=== PATIENT | male | born 1985 | race Caucasian/White ===

== ENCOUNTER 2016-06-08 12:55 | Emergency (ER) | payer OTHER ==
[~2016-06-08] VITALS: Ht 193 cm; Wt 73.3 kg
[~2016-06-08 12:55] MED LIST: ALBUAER19 INH; HYDR-5688 PO; ONDA4TAB10 SL
[2016-06-08 13:06] VITALS: TEMP 36.2; Ht 193 cm; Wt 73.3 kg
[2016-06-08] MEDS ORDERED: MoRPHine SULFATE 10 MG/ML CARP/VIAL IV PRN (13:30)
[2016-06-08] MEDS ORDERED: ONDANSETRON INJ 2 MG/ML 2 ML VIAL IV PRN (13:30)
--- NOTE | 2016-06-08 13:30 | EMERGENCY ROOM VISIT NOTE ---
History Report prepared by Omi: Rosita Verma Under the Supervision of: Dr. Cesar Estrada M.D. First contact with patient: 13:14 Chief Complaint: HEADACHE Stated Complaint: HEADACHE, BLACKED OUT History of Present Illness The patient is a 31 year old male who presents to the Emergency Room with complaints of an intermittent headache that began , but became persistent this past . He currently rates his discomfort as a 9/10 in severity. The patient states that on he hit his head pretty hard and notes an intermittent headache since then. He states that on he hit his head a few times off the ceiling, and states that his headache has been constant since then. The patient states that Friday afternoon he had a syncopal episode while going to the bathroom. He localizes the pain to the top of his head. The patient additionally associates blurry vision, muffled hearing , lightheaded and dizziness with ambulation, and photophobia. He states that he has had concussions in the past. The patient states that he smokes approximately a half a pack of cigarettes per day. He denies any ambulatory dysfunction or difficulty speaking. Source of History: patient Onset: , Position: head Symptom Intensity: 9/10 Timing: intermittent, other (persistent) Associated Symptoms: + nausea Note: Associated Symptoms: blurry vision, muffled hearing, lightheaded, dizziness, photophobia Review of Systems All systems have been listed, reviewed, and are negative other than those previously mentioned. Please see Additional Medical History Sheet. Past Medical & Surgical Medical Problems: (1) Asthma, Unspecified (2) Back pain (3) Back pain (4) Closed head injury (5) Concussion (6) Foreign body in eye (7) Foreign body in eye (8) Headache (9) Headache (10) Pain of right great toe (11) Pain, dental (12) Pain, dental (13) Pilonidal cyst without abscess (14) Postoperative pain (15) Sinusitis (16) Sprain of left hand (17) Vasovagal episode Family History Cancer Heart disease Hypertension Social History Smoking Status: Current Every Day Smoker Alcohol Use: none Drug Use: marijuana Marital Status: Housing Status: lives with family Occupation Status: employed Current/Historical Medications Scheduled Multivitamin (Multivitamin), 1 TAB PO DAILY Ondasetron Odt (Zofran Odt), 4 MG SL Q6H Scheduled PRN Albuterol Inhaler (Ventolin Inhaler), 2 PUFFS INH QID PRN for Shortness of Breath Ibuprofen Tab (Motrin), 600 MG PO Q6H PRN for Pain Allergies Coded Allergies: No Known Allergies (Unverified , 05/11/16) Physical Exam Vital Signs Date Time Temp Pulse Resp B/P Pulse Ox O2 Delivery O2 Flow Rate FiO2 06/08/16 14:43 69 14 128/74 97 Room Air 06/08/16 13:46 73 16 126/71 97 Room Air 06/08/16 13:06 36.2 95 18 113/82 97 Room Air Physical Exam GENERAL: Patient awake, alert, oriented x 3. Patient follows commands. Patient does not appear toxic. Patient is adequately hydrated and well- nourished. SKIN: No erythema, pallor, cyanosis or rash HEENT: Normal head, pupils equal, reactive to light and accommodation, slightly photophobic. Ears normal. Oral cavity and posterior pharynx appear normal. Neck: Without adenopathy, no neck vein distention. LUNGS: Clear to auscultation. No wheezes, no rales, no rhonchi. HEART: No murmurs. No gallops. No rubs ABDOMEN: Soft, nontender. EXTREMITIES: No signs of trauma or infection. NEUROLOGIC: Cranial nerves II-XII within normal limits. No gross motor sensory function deficits. Medical Decision & Procedures ER Provider Diagnostic Interpretation: CT results are interpretations by the radiologist and per my review. CT OF THE HEAD WITHOUT CONTRAST CLINICAL HISTORY: Headache. Recent head injury. COMPARISON STUDY: Head CT July 17, 2015. CT DOSE: 537.48 mGy.cm TECHNIQUE: Helical axial images of the head were obtained without IV contrast. Automated exposure control was utilized for the study. FINDINGS: No acute intracranial hemorrhage, midline shift or mass effect is present. Ventricular system is normal. The basilar cisterns are patent. There are no extra-axial collections. Arriola-white differentiation is maintained. There are no calvarial fractures. There is mild to moderate interval thickening of the ethmoid, sphenoid and maxillary sinuses. IMPRESSION: 1. No acute intracranial findings. 2. No calvarial fracture. 3. Mild to moderate paranasal sinus mucosal thickening. Electronically signed by: Deepak Zuñiga M.D. 06/08/2016 1:49 PM Dictated Date/Time: 06/08/2016 1:46 PM Laboratory Results 06/08/16 13:30 Red Blood Count 5.03, Mean Corpuscular Volume 87.5, Mean Corpuscular Hemoglobin 30.8, Mean Corpuscular Hemoglobin Concent 35.2, Mean Platelet Volume 10.1, Neutrophils (%) (Auto) 60.2, Lymphocytes (%) (Auto) 28.4, Monocytes (%) (Auto) 7.5, Eosinophils (%) (Auto) 3.2, Basophils (%) (Auto) 0.4, Neutrophils # (Auto) 4.71, Lymphocytes # (Auto) 2.22, Monocytes # (Auto) 0.59, Eosinophils # (Auto) 0.25, Basophils # (Auto) 0.03 06/08/16 13:30 Test 06/08/16 13:30 White Blood Count 7.82 K/uL (4.8-10.8) Red Blood Count 5.03 M/uL (4.7-6.1) Hemoglobin 15.5 g/dL (14.0-18.0) Hematocrit 44.0 % (42-52) Mean Corpuscular Volume 87.5 fL (80-100) Mean Corpuscular Hemoglobin 30.8 pg (25-34) Mean Corpuscular Hemoglobin Concent 35.2 g/dl (32-36) Platelet Count 240 K/uL (130-400) Mean Platelet Volume 10.1 fL (7.4-10.4) Neutrophils (%) (Auto) 60.2 % Lymphocytes (%) (Auto) 28.4 % Monocytes (%) (Auto) 7.5 % Eosinophils (%) (Auto) 3.2 % Basophils (%) (Auto) 0.4 % Neutrophils # (Auto) 4.71 K/uL (1.4-6.5) Lymphocytes # (Auto) 2.22 K/uL (1.2-3.4) Monocytes # (Auto) 0.59 K/uL (0.11-0.59) Eosinophils # (Auto) 0.25 K/uL (0-0.5) Basophils # (Auto) 0.03 K/uL (0-0.2) RDW Standard Deviation 40.4 fL (36.4-46.3) RDW Coefficient of Variation 12.5 % (11.5-14.5) Immature Granulocyte % (Auto) 0.3 % Immature Granulocyte # (Auto) 0.02 K/uL (0.00-0.02) Anion Gap 9.0 mmol/L (3-11) Est Creatinine Clear Calc Drug Dose 129.4 ml/min Estimated GFR () 133.6 Estimated GFR (Non- 115.3 BUN/Creatinine Ratio 15.4 (10-20) Calcium Level 9.0 mg/dl (8.5-10.1) Laboratory results as stated above per my review. Medications Administered Medications (Trade) Dose Ordered Sig/Will Route Start Time Stop Time Status Last Admin Dose Admin Morphine Sulfate (MoRPHine SULFATE INJ) 8 mg Q1H PRN IV 06/08/16 13:30 06/22/16 13:29 06/08/16 14:20 8 MG Ondansetron HCl (Zofran Inj) 4 mg PRN PRN IV 06/08/16 13:30 07/08/16 13:29 06/08/16 14:20 4 MG ED Course 1314: Past medical records reviewed. The patient was evaluated in room B12B. A complete history and physical examination was performed. 1330: Ordered Zofran Inj 4 mg IV, Morphine sulfate 8 mg IV. 1422: I reevaluated the patient and he is resting comfortably. I discussed the exam findings with him and I discussed the treatment plan. He verbalized complete understanding and agreement. He just received his pain medications now , once he feels better, he is okay to go home. Medical Decision Nurses notes reviewed. Medical history sheet reviewed. Differential diagnosis includes but is not limited to: concussion, closed head injury, traumatic brain injury, migraine, tension, or cluster headache, sinus headache. CT reveals some thickening of the sinuses but patient has no history of recent drainage or fever. There is no evidence of a bleed or significant swelling. The patient appears to have a mild concussion. He will be treated symptomatically with Motrin. He is to follow up with his family doctor within the next 7 days. Impression Primary Impression: Concussion Scribe Attestation The scribe's documentation has been prepared under my direction and personally reviewed by me in its entirety. I confirm that the note above accurately reflects all work, treatment, procedures, and medical decision making performed by me. Departure Information Dispostion Home / Self-Care Prescriptions Ibuprofen Tab (MOTRIN) 600 Mg Tab 600 MG PO Q6H Y for Pain, #30 TAB Prov: Cesar Estrada M.D. 06/08/16 Referrals Valentina Rodriguez PA-C (PCP) Forms HOME CARE DOCUMENTATION FORM, IMPORTANT VISIT INFORMATION Patient Instructions A Signature Page, My [facility] Additional Instructions 600 mg of ibuprofen every 6 hours until pain has resolved. Follow-up with your family physician within the next 7 days. Return here sooner if your pain is getting worse.
[2016-06-08 13:51] LABS: BASO % 0.4 %; BASO ABS # 0.03 K/uL (0-0.2); COMPLETE YES; EOS % 3.2 %; IG% 0.3 %; LYMPH % 28.4 %; LYMPH ABS # 2.22 K/uL (1.2-3.4); MEAN CELL VOLUME 87.5 fL (80-100); MEAN CORPUSCULAR HEMOGLOBIN 30.8 pg (25-34); MEAN CORPUSCULAR HGB CONC 35.2 g/dl (32-36); MEAN PLATELET VOLUME 10.1 fL (7.4-10.4); MONO % 7.5 %; NEUT % 60.2 %; PLATELET COUNT 240 K/uL (130-400); RED BLOOD COUNT 5.03 M/uL (4.7-6.1); WHITE BLOOD COUNT 7.82 K/uL (4.8-10.8)
--- NOTE | 2016-06-08 13:51 | DIAGNOSTIC IMAGING REPORT ---
CT OF THE HEAD WITHOUT CONTRAST CLINICAL HISTORY: Headache. Recent head injury. COMPARISON STUDY: Head CT July 17, 2015. CT DOSE: 537.48 mGy.cm TECHNIQUE: Helical axial images of the head were obtained without IV contrast. Automated exposure control was utilized for the study. FINDINGS: No acute intracranial hemorrhage, midline shift or mass effect is present. Ventricular system is normal. The basilar cisterns are patent. There are no extra-axial collections. Arriola-white differentiation is maintained. There are no calvarial fractures. There is mild to moderate interval thickening of the ethmoid, sphenoid and maxillary sinuses. IMPRESSION: 1. No acute intracranial findings. 2. No calvarial fracture. 3. Mild to moderate paranasal sinus mucosal thickening. Electronically signed by: Deepak Zuñiga M.D. 06/08/2016 1:49 PM Dictated Date/Time: 06/08/2016 1:46 PM
[2016-06-08 14:07] LABS: BUN/CREATININE RATIO 15.4 (10-20); CREATININE 0.85 mg/dl (0.60-1.40); POTASSIUM 4.1 mmol/L (3.5-5.1)
[2016-06-08] MEDS ORDERED: IBUP-1427 PO (14:29)
[2016-06-08 14:43] VITALS: BP 128/74; PULSE 69; O2SAT 97
[2016-07-10] MEDS ORDERED: MULT-506 PO (13:09)
[2016-07-10] MEDS ORDERED: VNTHFA/IN INH (18:25)
[2016-07-10] MEDS ORDERED: ACET-1256 PO (18:25)
[2016-07-10] MEDS ORDERED: CYCL10TA6 PO (18:26)
== END 2016-06-08 15:10 | disposition home or self-care (01) ==
LOC: C.EDB 12:57
DX: S06.0X0A Concussion without loss of consciousness, initial encounter (principal); W22.8XXA Striking against or struck by other objects, initial encounter; J45.909 Unspecified asthma, uncomplicated; F17.200 Nicotine dependence, unspecified, uncomplicated; Z87.820 Personal history of traumatic brain injury; Z86.19 Personal history of other infectious and parasitic diseases; Z80.9 Family history of malignant neoplasm, unspecified; Z82.49 Family history of ischemic heart disease and other diseases of the circulatory system

== ENCOUNTER 2016-07-02 16:29 | Emergency (ER) | payer OTHER ==
[~2016-07-02] VITALS: Ht 193 cm; Wt 77.2 kg
[~2016-07-02 16:29] MED LIST changes: -HYDR-5688 PO; +IBUP-1427 PO
[2016-07-02 16:33] VITALS: TEMP 36.5; Ht 193 cm; Wt 77.2 kg
[2016-07-02] MEDS ORDERED: SODIUM CHLORIDE 0.9% 1000ML 1,000 ML IV ONE (16:46)
[2016-07-02] MEDS ORDERED: SODIUM CHLORIDE 0.9% 1000ML 1,000 ML IV STA (16:46)
[2016-07-02] MEDS ORDERED: KETOROLAC TROMETHAMINE 30 MG/ML VIAL IV STA (16:46)
[2016-07-02 17:01] LABS: BASO % 0.6 %; BASO ABS # 0.05 K/uL (0-0.2); COMPLETE YES; EOS % 3.4 %; HEMATOCRIT 42.1 % (42-52); IG% 0.3 %; LYMPH % 32.5 %; LYMPH ABS # 2.79 K/uL (1.2-3.4); MEAN CORPUSCULAR HEMOGLOBIN 30.8 pg (25-34); MEAN CORPUSCULAR HGB CONC 34.2 g/dl (32-36); MONO % 5.9 %; NEUT % 57.3 %; PLATELET COUNT 275 K/uL (130-400); RED BLOOD COUNT 4.68 M/uL (4.7-6.1); WHITE BLOOD COUNT 8.59 K/uL (4.8-10.8)
[2016-07-02 17:32] LABS: ALT/SGPT 23 U/L (12-78); AST/SGOT 13 U/L (15-37); BLOOD UREA NITROGEN 12 mg/dl (7-18); BUN/CREATININE RATIO 12.8 (10-20); CALCIUM 8.6 mg/dl (8.5-10.1); CARBON DIOXIDE 25 mmol/L (21-32); CHLORIDE 107 mmol/L (98-107); CREATININE 0.96 mg/dl (0.60-1.40); GLUCOSE 111 mg/dl (70-99); POTASSIUM 3.8 mmol/L (3.5-5.1); SODIUM 142 mmol/L (136-145)
[2016-07-02 17:35] LABS: ALKALINE PHOSPHATASE 84 U/L (45-117)
[2016-07-02 17:35] LABS: URINE APPEARANCE CLEAR (CLEAR); URINE BILIRUBIN NEG (NEG); URINE COLOR YELLOW; URINE NITRITE NEG (NEG); URINE SPECIFIC GRAVITY 1.013 (1.000-1.030); UROBILINOGEN NEG (NEG)
[2016-07-02 17:37] LABS: MANUAL MICROSCOPIC REQUIRED? NO; REVIEW REQ? NO
--- NOTE | 2016-07-02 17:43 | DIAGNOSTIC IMAGING REPORT ---
CT SCAN OF THE ABDOMEN AND PELVIS WITHOUT IV CONTRAST CLINICAL HISTORY: Epigastric abdominal pain. COMPARISON STUDY: KUB dated 06/16/2007. TECHNIQUE: CT scan of the abdomen and pelvis is performed from the lung bases to the proximal femora. Images are reviewed in the axial, sagittal, and coronal planes. IV contrast was not administered for this examination as per the referring clinician. Note that the examination was performed in suboptimal fashion without oral and IV contrast. Automated dose control exposure was utilized. CT DOSE: 628.54 mGycm FINDINGS: Lung bases: The heart is normal in size and without pericardial effusion. The lung bases are clear. Liver: The unenhanced liver is normal in size, contour, and attenuation. There is no intrahepatic biliary ductal dilatation. Gallbladder: Contracted. Spleen: Normal in size and attenuation. Pancreas: Unremarkable. Adrenal glands: Unremarkable. Kidneys: The unenhanced kidneys are normal in size and without hydronephrosis. There are no renal calculi identified. There is no evidence of contour deforming renal mass lesion. Abdominal vasculature: The abdominal aorta is normal in course and caliber. Bowel: The small bowel and colon are normal in course and caliber. There is moderate colonic fecal retention. The appendix is well-visualized and normal. Peritoneum: There is no intraperitoneal free air or abdominal ascites. Lymphadenopathy: None. Pelvic viscera: The bladder, prostate, and seminal vesicles are normal as visualized. Skeletal structures: No lytic or blastic lesions are seen. IMPRESSION: 1. Suboptimal examination without oral and IV contrast. 2. There are no acute infectious or inflammatory findings in the abdomen or pelvis. 3. Moderate constipation. Electronically signed by: Keo Cherry M.D. 07/02/2016 5:42 PM Dictated Date/Time: 07/02/2016 5:38 PM
--- NOTE | 2016-07-02 17:46 | DIAGNOSTIC IMAGING REPORT ---
CT SCAN OF THE LUMBAR SPINE WITHOUT IV CONTRAST CLINICAL HISTORY: Low back pain. COMPARISON STUDY: CT scan of the abdomen and pelvis performed concurrently on 07/02/2016. MRI of lumbar spine dated 02/09/2014. TECHNIQUE: CT scan of the lumbar spine is performed from the lower thoracic spine to the sacrum. Images are reviewed in the axial, sagittal, and coronal planes. IV contrast was not administered for this examination. CT DOSE: Reported separately under the concurrently performed CT scan of the abdomen and pelvis. FINDINGS: The skeletal structures are well mineralized. There is no evidence of fracture or malalignment. Vertebral body height and alignment are maintained throughout the lumbar spine. The transverse and spinous processes are intact. There is no spondylolysis. No lytic or blastic lesions are seen. Small anterior osteophytes are noted at L4 and L5. There is no evidence of large disc herniation. Mild degenerative disc space narrowing is seen at L5-S1. The remaining disc spaces are preserved. The central canal is clear as visualized. The imaged sacrum and bony pelvis appear intact. The paraspinous soft tissues are within normal limits. IMPRESSION: Unremarkable CT scan of the lumbar spine. Electronically signed by: Keo Cherry M.D. 07/02/2016 5:44 PM Dictated Date/Time: 07/02/2016 5:42 PM
[2016-07-02] MEDS ORDERED: OXYC1TAB3 PO (18:02)
[2016-07-02 18:22] VITALS: BP 137/86; PULSE 79; O2SAT 99
--- NOTE | 2016-07-02 19:02 | EMERGENCY ROOM VISIT NOTE ---
History Report prepared by Omi: Monica Ortiz Under the Supervision of: Dr. Rodrigo Parsons M.D. First contact with patient: 16:36 Chief Complaint: ABDOMINAL PAIN Stated Complaint: ABD/ LOWER BACK PAIN History of Present Illness The patient is a 31 year old male who presents to the Emergency Room with complaints of persistent lower back pain starting about a week ago. He describes it to be a sharp pain. He also complains of upper abdominal pain. He has taken Vicodin without relief. He denies any activities that worsen or improve his pain. He also complains of chills, dark colored urine, and body aches. The patient denies any recent trauma or injuries, fevers, chest pain, shortness of breath, vomiting, burning with urination, numbness, weakness, or any other complaints. He has a history of bulging disc in his back but reports that his current pain is much more severe than normal. His was diagnosed with hepatitis A about a month ago. He denies any history of cholecystectomy. The patient denies any history of diabetes. He drinks alcohol occasionally. Source of History: patient Onset: about a week ago Position: back (lower) Quality: sharp Timing: other (persistent) Modifying Factors (Relieving): other (Vicodin without relief) Associated Symptoms: + abdominal pain, + chills, No SOB, No chest pain, No fevers, No numbness, No vomiting, No weakness Review of Systems See HPI for pertinent positives & negatives. A total of 10 systems reviewed and were otherwise negative. Past Medical & Surgical Medical Problems: (1) Asthma, Unspecified (2) Back pain (3) Back pain (4) Closed head injury (5) Concussion (6) Foreign body in eye (7) Foreign body in eye (8) Headache (9) Headache (10) Pain of right great toe (11) Pain, dental (12) Pain, dental (13) Pilonidal cyst without abscess (14) Postoperative pain (15) Sinusitis (16) Sprain of left hand (17) Vasovagal episode Old medical records were reviewed. Nurse's notes were reviewed and I agree with. Family History Cancer Heart disease Hypertension Social History Smoking Status: Current Every Day Smoker Alcohol Use: none Drug Use: marijuana Marital Status: Housing Status: lives with family Occupation Status: employed Current/Historical Medications Scheduled Acetaminophen (Tylenol), 1,000 MG PO PRN UD Multivitamin (Multivitamin), 1 TAB PO DAILY Scheduled PRN Albuterol Hfa (Ventolin Hfa), 2 PUFFS INH Q6H PRN for Shortness of Breath Cyclobenzaprine Hcl (Flexeril), 10 MG PO TID PRN for Muscle Spasms Oxycodone Immediate Rel Tab (Roxicodone Ir), 1-2 TAB PO Q4H PRN for Severe Pain Allergies Coded Allergies: No Known Allergies (Unverified , 05/11/16) Physical Exam Vital Signs Date Time Temp Pulse Resp B/P Pulse Ox O2 Delivery O2 Flow Rate FiO2 07/02/16 18:22 79 18 137/86 99 Room Air 07/02/16 16:33 36.5 90 20 122/79 99 Room Air Physical Exam General: Non-ill appearing, young male, in no acute distress. HEENT: Normal cephalic atraumatic. Pupils are equal round and reactive to light. Extraocular movements are intact. Oropharynx is pink with moist mucous membranes. No swelling of the mouth lips or tongue. Neck: Supple with a midline trachea. No meningeal signs or stiffness, no JVD or bruits. No Stridor. Chest: Clear to auscultation bilaterally. No wheezes or rhonchi. No increased work of breathing. Heart: regular rate and rhythm. Abdomen: Soft nontender, nondistended without rebound guarding or rigidity. Extremities: No cyanosis clubbing or edema. No calf tenderness or assymetry Spine/Back. Non tender to palpation. No CVA tenderness Skin: Good turgor without rashes. Neurologic exam: Cranial nerves two through 12 are intact. Motor and sensation are intact and symmetrical throughout. Medical Decision & Procedures ER Provider Diagnostic Interpretation: CT results as stated below per my review and radiologist interpretation: CT SCAN OF THE ABDOMEN AND PELVIS WITHOUT IV CONTRAST CLINICAL HISTORY: Epigastric abdominal pain. COMPARISON STUDY: KUB dated 06/16/2007. TECHNIQUE: CT scan of the abdomen and pelvis is performed from the lung bases to the proximal femora. Images are reviewed in the axial, sagittal, and coronal planes. IV contrast was not administered for this examination as per the referring clinician. Note that the examination was performed in suboptimal fashion without oral and IV contrast. Automated dose control exposure was utilized. CT DOSE: 628.54 mGycm FINDINGS: Lung bases: The heart is normal in size and without pericardial effusion. The lung bases are clear. Liver: The unenhanced liver is normal in size, contour, and attenuation. There is no intrahepatic biliary ductal dilatation. Gallbladder: Contracted. Spleen: Normal in size and attenuation. Pancreas: Unremarkable. Adrenal glands: Unremarkable. Kidneys: The unenhanced kidneys are normal in size and without hydronephrosis. There are no renal calculi identified. There is no evidence of contour deforming renal mass lesion. Abdominal vasculature: The abdominal aorta is normal in course and caliber. Bowel: The small bowel and colon are normal in course and caliber. There is moderate colonic fecal retention. The appendix is well-visualized and normal. Peritoneum: There is no intraperitoneal free air or abdominal ascites. Lymphadenopathy: None. Pelvic viscera: The bladder, prostate, and seminal vesicles are normal as visualized. Skeletal structures: No lytic or blastic lesions are seen. IMPRESSION: 1. Suboptimal examination without oral and IV contrast. 2. There are no acute infectious or inflammatory findings in the abdomen or pelvis. 3. Moderate constipation. Electronically signed by: Keo Cherry M.D. 07/02/2016 5:42 PM Dictated Date/Time: 07/02/2016 5:[address] SCAN OF THE LUMBAR SPINE WITHOUT IV CONTRAST CLINICAL HISTORY: Low back pain. COMPARISON STUDY: CT scan of the abdomen and pelvis performed concurrently on 07/02/2016. MRI of lumbar spine dated 02/09/2014. TECHNIQUE: CT scan of the lumbar spine is performed from the lower thoracic spine to the sacrum. Images are reviewed in the axial, sagittal, and coronal planes. IV contrast was not administered for this examination. CT DOSE: Reported separately under the concurrently performed CT scan of the abdomen and pelvis. FINDINGS: The skeletal structures are well mineralized. There is no evidence of fracture or malalignment. Vertebral body height and alignment are maintained throughout the lumbar spine. The transverse and spinous processes are intact. There is no spondylolysis. No lytic or blastic lesions are seen. Small anterior osteophytes are noted at L4 and L5. There is no evidence of large disc herniation. Mild degenerative disc space narrowing is seen at L5-S1. The remaining disc spaces are preserved. The central canal is clear as visualized. The imaged sacrum and bony pelvis appear intact. The paraspinous soft tissues are within normal limits. IMPRESSION: Unremarkable CT scan of the lumbar spine. Electronically signed by: Keo Cherry M.D. 07/02/2016 5:44 PM Dictated Date/Time: 07/02/2016 5:42 PM Laboratory Results 07/02/16 16:40 Red Blood Count 4.68, Mean Corpuscular Volume 90.0, Mean Corpuscular Hemoglobin 30.8, Mean Corpuscular Hemoglobin Concent 34.2, Mean Platelet Volume 10.0, Neutrophils (%) (Auto) 57.3, Lymphocytes (%) (Auto) 32.5, Monocytes (%) (Auto) 5.9, Eosinophils (%) (Auto) 3.4, Basophils (%) (Auto) 0.6, Neutrophils # (Auto) 4.92, Lymphocytes # (Auto) 2.79, Monocytes # (Auto) 0.51, Eosinophils # (Auto) 0.29, Basophils # (Auto) 0.05 07/02/16 16:40 Test 07/02/16 16:40 07/02/16 17:10 White Blood Count 8.59 K/uL (4.8-10.8) Red Blood Count 4.68 M/uL (4.7-6.1) Hemoglobin 14.4 g/dL (14.0-18.0) Hematocrit 42.1 % (42-52) Mean Corpuscular Volume 90.0 fL (80-100) Mean Corpuscular Hemoglobin 30.8 pg (25-34) Mean Corpuscular Hemoglobin Concent 34.2 g/dl (32-36) Platelet Count 275 K/uL (130-400) Mean Platelet Volume 10.0 fL (7.4-10.4) Neutrophils (%) (Auto) 57.3 % Lymphocytes (%) (Auto) 32.5 % Monocytes (%) (Auto) 5.9 % Eosinophils (%) (Auto) 3.4 % Basophils (%) (Auto) 0.6 % Neutrophils # (Auto) 4.92 K/uL (1.4-6.5) Lymphocytes # (Auto) 2.79 K/uL (1.2-3.4) Monocytes # (Auto) 0.51 K/uL (0.11-0.59) Eosinophils # (Auto) 0.29 K/uL (0-0.5) Basophils # (Auto) 0.05 K/uL (0-0.2) RDW Standard Deviation 42.1 fL (36.4-46.3) RDW Coefficient of Variation 12.8 % (11.5-14.5) Immature Granulocyte % (Auto) 0.3 % Immature Granulocyte # (Auto) 0.03 K/uL (0.00-0.02) Anion Gap 10.0 mmol/L (3-11) Est Creatinine Clear Calc Drug Dose 120.6 ml/min Estimated GFR () 120.7 Estimated GFR (Non- 104.2 BUN/Creatinine Ratio 12.8 (10-20) Calcium Level 8.6 mg/dl (8.5-10.1) Total Bilirubin 0.2 mg/dl (0.2-1) Direct Bilirubin < 0.1 mg/dl (0-0.2) Aspartate Amino Transf (AST/SGOT) 13 U/L (15-37) Alanine Aminotransferase (ALT/SGPT) 23 U/L (12-78) Alkaline Phosphatase 84 U/L (45-117) Total Protein 7.3 gm/dl (6.4-8.2) Albumin 3.9 gm/dl (3.4-5.0) Lipase 204 U/L (73-393) Urine Color YELLOW Urine Appearance CLEAR (CLEAR) Urine pH 7.0 (4.5-7.5) Urine Specific [place] 1.013 (1.000-1.030) Urine Protein NEG (NEG) Urine Glucose (UA) NEG (NEG) Urine Ketones NEG (NEG) Urine Occult Blood NEG (NEG) Urine Nitrite NEG (NEG) Urine Bilirubin NEG (NEG) Urine Urobilinogen NEG (NEG) Urine Leukocyte Esterase NEG (NEG) Laboratory studies as stated above per my review. Medications Administered Medications (Trade) Dose Ordered Sig/Will Route Start Time Stop Time Status Last Admin Dose Admin Sodium Chloride 1,000 ml @ 999 mls/hr Q1H1M STAT IV 07/02/16 16:46 07/02/16 17:46 DC 07/02/16 16:46 999 MLS/HR Sodium Chloride (Nss 1000ml) 1,000 ml @ 200 mls/hr Q5H ONCE IV 07/02/16 16:46 07/02/16 18:47 DC 07/02/16 16:46 200 MLS/HR Ketorolac Tromethamine (Toradol Inj) 30 mg NOW STAT IV 07/02/16 16:46 07/02/16 16:50 DC 07/02/16 16:46 30 MG ED Course 1636: Past medical records reviewed. The patient was evaluated in room B07, and a complete history and physical examination were performed. 164: Toradol Inj 30 mg IV, Sodium Chloride 1000 ml @ 200 mls/hr IV, Sodium Chloride 1000 ml @ 999 mls/hr IV 1810: Upon reevaluation, the patient is resting comfortably. I discussed the results and treatment plan with him. He verbalized agreement of the treatment plan. The patient was discharged home. Medical Decision Differential diagnosis includes but is not limited to lumbar disc disease, kidney stone, hepatitis, pancreatitis, infection, electrolyte or metabolic abnormality. This patient comes in as described above. he has low back pain. He has chronic low back problems but it feels worse he also says of epigastric pain. He looks well on exam and has minimal tenderness. There is no fever or chills here. He has stable vital signs. He has nothing to suggest cauda equina syndrome. He has no urinary symptoms. Urinalysis does not suggest a UTI. He has no white count or fever to suggest infection. He has normal liver functions and nothing to suggest hepatitis. He has nothing to suggest pancreatitis. CAT scan of his abdomen and lumbar spine was unremarkable. This may be more musculoskeletal. He did receive IV hydration as well with an IV normal saline bolus and hourly rate of IV normal saline while he was here he also received Toradol 30 mg IV. He feels up to go home. I will give a prescription for OxyIR 5 mg that he can use one or 2 pills every 4-6 hours as needed. he was warned that this could make him drowsy and do not take before drinking, driving, working. Do not take was any other narcotics or sedating medications. Follow-up with his doctor 1-2 days recheck. Return to the ER if: increasing pain, fever or chills, worsening of symptoms, any new problems or concerns. He was happy with the plan and discharged to home. Impression Primary Impression: Low back pain Additional Impression: Epigastric abdominal pain Scribe Attestation The scribe's documentation has been prepared under my direction and personally reviewed by me in its entirety. I confirm that the note above accurately reflects all work, treatment, procedures, and medical decision making performed by me. Departure Information Dispostion Home / Self-Care Prescriptions Oxycodone Immediate Rel Tab (ROXICODONE IR) 5 Mg Tab 1-2 TAB PO Q4H Y for Severe Pain, #12 TAB Prov: Rodrigo Parsons M.D. 07/02/16 Referrals Valentina Rodriguez PA-C (PCP) Forms Call Back Authorization, HOME CARE DOCUMENTATION FORM, IMPORTANT VISIT INFORMATION Patient Instructions My [facility] Additional Instructions Rest Plenty of fluids. Return if: Increasing pain, worsening of symptoms, fever or chills, any new problems or concerns For pain, may use OxyIR 5 mg, one or 2 pills every 4-6 hours as needed OxyIR may make you drowsy and do not take before drinking, driving, working Do not take OxyIR with any other narcotic medications or any other medications that can make you sleepy Follow-up with your doctor for recheck this week. Problem Qualifiers
[2016-07-10] MEDS ORDERED: MULT-506 PO (13:09)
[2016-07-10] MEDS ORDERED: ACET-1256 PO (18:25)
[2016-07-10] MEDS ORDERED: VNTHFA/IN INH (18:25)
[2016-07-10] MEDS ORDERED: CYCL10TA6 PO (18:26)
== END 2016-07-02 18:23 | disposition home or self-care (01) ==
LOC: C.EDB 16:30
DX: M54.5 Low back pain (principal); R10.13 Epigastric pain; F17.210 Nicotine dependence, cigarettes, uncomplicated; J45.909 Unspecified asthma, uncomplicated; K59.00 Constipation, unspecified; R33.9 Retention of urine, unspecified

== ENCOUNTER 2016-07-10 21:35 | Emergency (ER) | payer OTHER ==
[~2016-07-10] VITALS: Ht 193 cm; Wt 77.0 kg
[~2016-07-10 21:35] MED LIST changes: +ACET-1256 PO; -ALBUAER19 INH; +CYCL10TA6 PO; -IBUP-1427 PO; +MULT-506 PO; -ONDA4TAB10 SL; +OXYC1TAB3 PO; +VNTHFA/IN INH
[2016-07-10 21:38] VITALS: TEMP 36.6; Ht 193 cm; Wt 77.0 kg
--- NOTE | 2016-07-10 22:12 | DIAGNOSTIC IMAGING REPORT ---
CT FACIAL BONES-MXILLOFAC WITHOUT CT DOSE: 674.82 mGy.cm CLINICAL HISTORY: FACIAL PAIN STATUS POST TRAUMA COMPARISON STUDY: No previous studies for comparison. TECHNIQUE: Helical images were acquired in the transverse plane. The study was reviewed and analyzed on the independent 3-D workstation. The pterygoid plates appear intact. The zygomatic arches appear intact. The globes appear intact. There is no evidence of orbital emphysema. The orbital hairston and floor appear intact. The mandibular condyles appear intact. There is mucosal thickening within the sphenoid axillary ethmoid and frontal sinuses. IMPRESSION: 1. No facial fractures identified 2. Pansinus disease Electronically signed by: Guanakito Lerma M.D. 07/10/2016 10:11 PM Dictated Date/Time: 07/10/2016 10:09 PM
--- NOTE | 2016-07-10 22:28 | EMERGENCY ROOM VISIT NOTE ---
ED Visit Note First contact with patient: 21:41 CHIEF COMPLAINT: Left eye injury HISTORY OF PRESENT ILLNESS: This 31-year-old male patient presented to the emergency department ambulatory complaining of an injury to the left eye. The patient states that he was tearing up a wood floor when he was hit in the left eye with a piece of wood. He saw his loan clerk, who performed a complete eye exam and diagnosed him with a corneal abrasion. He states that a lens was placed on his eye and he has a follow-up tomorrow morning. He states that he was sent here to evaluate for a possible facial bone fracture, as he has pain surrounding the eye. He rates his discomfort a 9/10. There was no loss of consciousness. His vision is not decreased overall. REVIEW OF SYSTEMS: A review of systems was performed with positives and pertinent negatives listed in the history of present illness. All other systems were reviewed and are negative. ALLERGIES: No known drug allergies MEDICATIONS: Ventolin inhaler, Flexeril, multivitamin PMH: Asthma SOCIAL HISTORY: The patient lives locally with family. He is a smoker. PHYSICAL EXAM: Vital Signs: Reviewed Nurse's notes, vital signs stable. GENERAL : This is a 31-year-old male, in no acute distress, well-developed, well- nourished. NEURO: The patient is alert, oriented to person place and time, and coherent. Normal mini mental status exam. Negative Romberg and pronator drift. Cerebellar function intact. HEAD: Normocephalic. EYES: Left pupil is dilated, bilateral pupils are reactive to light and accommodation. EOMs are full and optic discs and fundi are normal. There is no swelling or discoloration of the tissue surrounding the eyes. There is tenderness of the infraorbital region. EARS: External auditory canals clear without blood. NOSE : Patent without tenderness. No septal hematoma. NECK: Supple. There is no cervical spine tenderness. RADIOGRAPHIC FINDINGS: CT FACIAL BONES-MXILLOFAC WITHOUT CT DOSE: 674.82 mGy.cm CLINICAL HISTORY: FACIAL PAIN STATUS POST TRAUMA COMPARISON STUDY: No previous studies for comparison. TECHNIQUE: Helical images were acquired in the transverse plane. The study was reviewed and analyzed on the independent 3-D workstation. The pterygoid plates appear intact. The zygomatic arches appear intact. The globes appear intact. There is no evidence of orbital emphysema. The orbital hairston and floor appear intact. The mandibular condyles appear intact. There is mucosal thickening within the sphenoid axillary ethmoid and frontal sinuses. IMPRESSION: 1. No facial fractures identified 2. Pansinus disease ED COURSE: I examined the patient. His left pupil is dilated secondary to his ophthalmologic exam. CT of the facial bones was performed and read by radiology with no acute facial bone fractures. The patient was informed of all findings. His corneal abrasion was are fully evaluated by ophthalmology. He will continue to follow-up with them as needed. He has Vicodin at home to take for pain. He verbalized understanding. The patient was discharged home in good condition ambulatory. DIAGNOSIS: Head injury Problem List Medical Problems: (1) Asthma, Unspecified Status: Chronic (2) Back pain Status: Resolved (3) Back pain Status: Resolved (4) Closed head injury Status: Resolved (5) Concussion Status: Resolved (6) Foreign body in eye Status: Resolved (7) Foreign body in eye Status: Resolved (8) Headache Status: Resolved (9) Headache Status: Resolved (10) Pain of right great toe Status: Resolved (11) Pain, dental Status: Resolved (12) Pain, dental Status: Resolved (13) Pilonidal cyst without abscess Status: Resolved (14) Postoperative pain Status: Resolved (15) Sinusitis Status: Resolved (16) Sprain of left hand Status: Resolved (17) Vasovagal episode Status: Resolved Current/Historical Medications Scheduled Multivitamin (Multivitamin), 1 TAB PO DAILY Scheduled PRN Acetaminophen (Tylenol), 1,000 MG PO Q6H PRN for Pain or Fever Albuterol Hfa (Ventolin Hfa), 2 PUFFS INH Q6H PRN for Shortness of Breath Cyclobenzaprine Hcl (Flexeril), 10 MG PO TID PRN for Muscle Spasm Allergies Coded Allergies: No Known Allergies (Unverified , 05/11/16) Vital Signs Date Time Temp Pulse Resp B/P Pulse Ox O2 Delivery O2 Flow Rate FiO2 07/10/16 22:31 84 18 145/87 95 07/10/16 21:38 36.6 102 17 122/88 97 Room Air Departure Information Impression Primary Impression: Closed head injury Additional Impression: Corneal abrasion Dispostion Home / Self-Care Condition GOOD Referrals Valentina Rodriguez PA-C (PCP) Patient Instructions My [facility] Additional Instructions For pain control, you can use the following [id number] medicines (if >12 yo): - Regular strength (325mg/tab) Tylenol (acetaminophen) 2 tabs every 4-6 hours as needed. Do not exceed 12 tablets in a 24 hour period. Avoid taking more than 4 grams (4000 mg) of Tylenol per day. This includes any other sources of acetaminophen you may take on a regular basis. - Regular strength (200 mg/tab) Advil (ibuprofen) 1-2 tabs every 4-6 hours as needed. Do not exceed a dose of 3200 mg per day. Continue to follow-up with your loan clerk as scheduled. Problem Qualifiers Primary Impression: Closed head injury Encounter type: initial encounter Qualified Codes: S09.90XA - Unspecified injury of head, initial encounter Additional Impression: Corneal abrasion Encounter type: initial encounter Laterality: left Qualified Codes: S05.02XA - Injury of conjunctiva and corneal abrasion without foreign body, left eye, initial encounter
[2016-07-10 22:31] VITALS: BP 145/87; PULSE 84; O2SAT 95
== END 2016-07-10 22:32 | disposition home or self-care (01) ==
LOC: C.EDB 21:36 → C.EDD 22:32
DX: S05.02XA Injury of conjunctiva and corneal abrasion without foreign body, left eye, initial encounter (principal); W22.8XXA Striking against or struck by other objects, initial encounter; J45.909 Unspecified asthma, uncomplicated; F17.210 Nicotine dependence, cigarettes, uncomplicated

== ENCOUNTER 2016-08-05 19:14 | Emergency (ER) | payer OTHER ==
[~2016-08-05] VITALS: Ht 185.4 cm; Wt 78.7 kg
[~2016-08-05 19:14] MED LIST changes: -OXYC1TAB3 PO
[2016-08-05 19:15] VITALS: BP 124/70; PULSE 98; TEMP 36.6; O2SAT 98; Ht 185.4 cm; Wt 78.7 kg
[2016-08-05] MEDS ORDERED: VNTHFA/IN INH (19:36)
[2016-08-05] MEDS ORDERED: OXYC1TAB3 PO (19:37)
--- NOTE | 2016-08-05 19:50 | EMERGENCY ROOM VISIT NOTE ---
ED Visit Note First contact with patient: 19:23 CHIEF COMPLAINT: Elbow pain HISTORY OF PRESENT ILLNESS: This 31-year-old male patient presents to the emergency department ambulatory complaining of pain in the right elbow. The patient reports that he had surgery on his right elbow to repairing tendon 3 weeks ago. He followed up there last week and have the splint removed. He states that he has been performing range of motion exercises. The patient states that 3 days ago, he tripped on a toy and fell. He states that he attempted to catch himself. He has had pain in the right elbow since then. He did contact his orthopedic surgeon in the told him that if his pain was too severe, he should go to a local emergency department. The patient rates their pain as sharp and and 9/10. The patient has taken no medication for relief of the pain. The patient does not have any numbness or tingling. The patient denies any other injuries. REVIEW OF SYSTEMS: A 6 system review of systems was completed with positives and pertinent negatives listed in the HPI. ALLERGIES: No known drug allergies MEDICATIONS: Multiple vitamin, Ventolin inhaler PMH: Asthma, right elbow surgery SOCIAL HISTORY: The patient lives locally with family. PHYSICAL EXAM: Vital Signs: Reviewed Nurse's notes, vital signs stable. GENERAL : This is a 31-year-old male, in no acute distress, well-developed, well- nourished. SKIN: The skin was without rashes, erythema, edema, warmth, or bruising. Capillary reflex less than 3 seconds. MUSCULOSKELETAL: There is a well-healing surgical wound to the right elbow. No erythema, swelling or drainage to suggestive infection. There is diffuse tenderness to palpation over the elbow. Full range of motion of the elbow. Strength 5/5. There is no tenderness of the shoulder, wrist, or hand. The patient is able to give a thumbs up, make an OK sign, and a #3 with their fingers. Radial pulse 2+. NEURO: Patient was alert and oriented to person place and time. Normal sensation to light and sharp touch. RADIOGRAPHIC FINDINGS: RIGHT ELBOW 3 VIEWS CLINICAL HISTORY: Fall with right elbow pain. FINDINGS: 3 views of the right elbow are compared to study dated 01/31/2016. The skeletal structures are well mineralized. No fracture is seen. The joint spaces of the elbow are well-maintained. No joint effusion is identified. Dorsal soft tissue swelling is noted. IMPRESSION: Soft tissue tissue swelling with no radiographic evidence of acute fracture. EMERGENCY DEPARTMENT COURSE: I examined the patient. There is no evidence of infection. An x-ray of the right elbow was reviewed myself and read by radiology and shows no acute findings. The patient will wear his arm sling. Conservative measures were discussed. The patient was instructed to follow closely with his orthopedic surgeon for further evaluation. Neurovascular status was rechecked and intact. The patient was discharged home in stable condition. DIAGNOSIS: Elbow pain Problem List Medical Problems: (1) Asthma, Unspecified Status: Chronic (2) Back pain Status: Resolved (3) Back pain Status: Resolved (4) Closed head injury Status: Resolved (5) Concussion Status: Resolved (6) Foreign body in eye Status: Resolved (7) Foreign body in eye Status: Resolved (8) Headache Status: Resolved (9) Headache Status: Resolved (10) Pain of right great toe Status: Resolved (11) Pain, dental Status: Resolved (12) Pain, dental Status: Resolved (13) Pilonidal cyst without abscess Status: Resolved (14) Postoperative pain Status: Resolved (15) Sinusitis Status: Resolved (16) Sprain of left hand Status: Resolved (17) Vasovagal episode Status: Resolved Current/Historical Medications Scheduled Multivitamin (Multivitamin), 1 TAB PO DAILY Scheduled PRN Acetaminophen (Tylenol), 1,000 MG PO Q6H PRN for Pain or Fever Albuterol Hfa (Ventolin Hfa), 2 PUFFS INH Q6H PRN for SOB/Wheezing Oxycodone Ir (Roxicodone Ir), 1-2 TAB PO Q4H PRN for Severe Pain Allergies Coded Allergies: No Known Allergies (Unverified , 05/11/16) Vital Signs Date Time Temp Pulse Resp B/P Pulse Ox O2 Delivery O2 Flow Rate FiO2 08/05/16 19:15 36.6 98 18 124/70 98 Room Air Departure Information Impression Primary Impression: Right elbow pain Dispostion Home / Self-Care Condition GOOD Referrals Valentina Rodriguez PA-C (PCP) Patient Instructions My [facility] Additional Instructions You have been treated in the Emergency Department for Elbow Pain. For pain control, you can use the following [id number] medicines (if >12 yo): - Regular strength (325mg/tab) Tylenol (acetaminophen) 2 tabs every 4-6 hours as needed. Do not exceed 12 tablets in a 24 hour period. Avoid taking more than 4 grams (4000 mg) of Tylenol per day. This includes any other sources of acetaminophen you may take on a regular basis. - Regular strength (200 mg/tab) Advil (ibuprofen) 1-2 tabs every 4-6 hours as needed. Do not exceed a dose of 3200 mg per day. If this is a recent injury (<24 hrs), ice can be applied to the area of pain for the first 3 days to help decrease pain and inflammation. You should call your orthopedic surgeon as soon as possible to establish a follow-up visit from today's Emergency Department visit. Keep the sling in place until evaluated by Orthopedics. Return to the Emergency Department if your current symptoms worsen despite treatment course outlined above, or if you develop any of the following symptoms : intractable pain despite aforementioned treatment course or new onset of numbness or tingling of the arm.
--- NOTE | 2016-08-05 19:54 | DIAGNOSTIC IMAGING REPORT ---
RIGHT ELBOW 3 VIEWS CLINICAL HISTORY: Fall with right elbow pain. FINDINGS: 3 views of the right elbow are compared to study dated 01/31/2016. The skeletal structures are well mineralized. No fracture is seen. The joint spaces of the elbow are well-maintained. No joint effusion is identified. Dorsal soft tissue swelling is noted. IMPRESSION: Soft tissue tissue swelling with no radiographic evidence of acute fracture. Electronically signed by: Keo Cherry M.D. 08/05/2016 7:53 PM Dictated Date/Time: 08/05/2016 7:51 PM
== END 2016-08-05 20:32 | disposition home or self-care (01) ==
LOC: C.EDB 19:15 → C.EDD 20:32
DX: M25.521 Pain in right elbow (principal); J45.909 Unspecified asthma, uncomplicated

== ENCOUNTER 2016-10-06 18:50 | Emergency (ER) | payer OTHER ==
[~2016-10-06] VITALS: Ht 193 cm; Wt 72.3 kg
[~2016-10-06 18:50] MED LIST changes: -CYCL10TA6 PO; +OXYC1TAB3 PO
[2016-10-06 18:53] VITALS: TEMP 36.8; Ht 193 cm; Wt 72.3 kg
[2016-10-06] MEDS ORDERED: SODIUM CHLORIDE 0.9% 1000ML 2,000 ML IV STA (19:03)
[2016-10-06] MEDS ORDERED: SODIUM CHLORIDE 0.9% 1000ML 1,000 ML IV STA (19:03)
[2016-10-06] MEDS ORDERED: PROMETHAZINE HCL INJ 25 MG in SODIUM CHLORIDE 0.9% 50ML 50 ML IV STA (19:03)
[2016-10-06] MEDS ORDERED: FENTANYL CITRATE INJ 50 MCG/1 ML 2 ML VIAL IV STA (19:03)
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
[2016-10-06 19:27] LABS: BASO % 0.2 %; BASO ABS # 0.02 K/uL (0-0.2); COMPLETE YES; EOS % 1.3 %; HEMATOCRIT 39.5 % (42-52); IG% 0.1 %; LYMPH % 28.7 %; LYMPH ABS # 3.08 K/uL (1.2-3.4); MEAN CORPUSCULAR HEMOGLOBIN 30.9 pg (25-34); MEAN CORPUSCULAR HGB CONC 34.7 g/dl (32-36); MEAN PLATELET VOLUME 9.6 fL (7.4-10.4); MONO % 6.1 %; NEUT % 63.6 %; PLATELET COUNT 252 K/uL (130-400); RED BLOOD COUNT 4.44 M/uL (4.7-6.1); WHITE BLOOD COUNT 10.72 K/uL (4.8-10.8)
--- NOTE | 2016-10-06 19:38 | DIAGNOSTIC IMAGING REPORT ---
CHEST ONE VIEW PORTABLE CLINICAL HISTORY: Fever, chills, cough. COMPARISON STUDY: No previous studies for comparison. FINDINGS: The cardiac and mediastinal contours are normal. There is no evidence of focal pulmonary consolidation. There is no evidence of failure. No pleural effusions are visualized.[ IMPRESSION: No active disease in the chest. Electronically signed by: Guanakito Lerma M.D. 10/06/2016 7:36 PM Dictated Date/Time: 10/06/2016 7:36 PM
[2016-10-06 19:43] LABS: BLOOD UREA NITROGEN 10 mg/dl (7-18); BUN/CREATININE RATIO 11.7 (10-20); CALCIUM 8.8 mg/dl (8.5-10.1); CARBON DIOXIDE 30 mmol/L (21-32); CHLORIDE 107 mmol/L (98-107); CREATININE 0.84 mg/dl (0.60-1.40); GLUCOSE 129 mg/dl (70-99); POTASSIUM 3.5 mmol/L (3.5-5.1); SODIUM 144 mmol/L (136-145)
[2016-10-06 19:46] LABS: C-REACTIVE PROTEIN < 0.29 mg/dl (0-0.29)
[2016-10-06 19:48] LABS: URINE APPEARANCE CLEAR (CLEAR); URINE BILIRUBIN NEG (NEG); URINE COLOR YELLOW; URINE EPITHELIAL CELL AUTO 20-30 /lpf (0-5); URINE NITRITE NEG (NEG); URINE PH 6.5 (4.5-7.5); URINE SPECIFIC GRAVITY 1.016 (1.000-1.030); UROBILINOGEN NEG (NEG); ZZUR CULT IF INDIC CLEAN CATCH NO
[2016-10-06 19:49] LABS: MANUAL MICROSCOPIC REQUIRED? NO; REVIEW REQ? NO
--- NOTE | 2016-10-06 19:52 | DIAGNOSTIC IMAGING REPORT ---
CT HEAD WITHOUT CONTRAST (CT) CLINICAL HISTORY: Head trauma. Headache. Vomiting. COMPARISON STUDY: 06/08/2016 TECHNIQUE: Axial CT of the brain is performed from the vertex to the skull base. IV contrast was not administered for this examination. CT DOSE: 537.48 mGy.cm FINDINGS: No intra or extra-axial mass lesions are visualized. There is no CT evidence of acute cortical infarction. There is no evidence of midline shift. There is no acute hemorrhage. No calvarial fractures are visualized. There is no evidence of pathologic ventricular dilatation. There is mucosal thickening within the sphenoid and ethmoid sinuses. IMPRESSION: No acute intracranial findings Electronically signed by: Guanakito Lerma M.D. 10/06/2016 7:51 PM Dictated Date/Time: 10/06/2016 7:49 PM
[2016-10-06] MEDS ORDERED: LORAZEPAM 2 MG/ML 1 ML VIAL ONE (20:09)
[2016-10-06 20:20] LABS: LYME DISEASE AB IGG NEG (NEG); LYME DISEASE AB IGM NEG (NEG)
[2016-10-06] MEDS ORDERED: PHENERGAN 25MG HOMEPACK PO ONE (22:00)
[2016-10-06 22:39] VITALS: BP 118/80; PULSE 74; O2SAT 99
== END 2016-10-06 22:30 | disposition home or self-care (01) ==
LOC: C.EDB 18:51 → C.EDA 22:30
DX: R11.10 Vomiting, unspecified (principal); E86.0 Dehydration; R41.82 Altered mental status, unspecified; J45.909 Unspecified asthma, uncomplicated; F17.200 Nicotine dependence, unspecified, uncomplicated; Z87.820 Personal history of traumatic brain injury; Z87.828 Personal history of other (healed) physical injury and trauma; Z80.9 Family history of malignant neoplasm, unspecified; Z82.49 Family history of ischemic heart disease and other diseases of the circulatory system

== ENCOUNTER 2016-10-07 22:47 | Emergency (ER) | payer OTHER ==
[~2016-10-07] VITALS: Ht 193 cm; Wt 74.7 kg
[2016-10-07 22:48] VITALS: TEMP 36.7; Ht 193 cm; Wt 74.7 kg
[2016-10-07] MEDS ORDERED: KETOROLAC TROMETHAMINE 30 MG/ML VIAL IV STA (23:21)
[2016-10-07] MEDS ORDERED: DiphenhydrAMINE HCL 50 MG/ML VIAL IV STA (23:21)
[2016-10-07] MEDS ORDERED: PROCHLORPERAZINE 5 MG/ML 2 ML VIAL IV STA (23:21)
[2016-10-07] MEDS ORDERED: SODIUM CHLORIDE 0.9% 1000ML 1,000 ML IV ONE (23:30)
[2016-10-07 23:37] LABS: BASO % 0.6 %; BASO ABS # 0.07 K/uL (0-0.2); COMPLETE YES; EOS % 2.3 %; HEMATOCRIT 37.5 % (42-52); IG% 0.2 %; LYMPH % 25.9 %; LYMPH ABS # 3.21 K/uL (1.2-3.4); MEAN CELL VOLUME 89.3 fL (80-100); MEAN CORPUSCULAR HEMOGLOBIN 30.7 pg (25-34); MEAN CORPUSCULAR HGB CONC 34.4 g/dl (32-36); MEAN PLATELET VOLUME 9.8 fL (7.4-10.4); MONO % 6.4 %; NEUT % 64.6 %; PLATELET COUNT 237 K/uL (130-400); WHITE BLOOD COUNT 12.38 K/uL (4.8-10.8)
[2016-10-07 23:50] LABS: URINE APPEARANCE CLEAR (CLEAR); URINE BILIRUBIN NEG (NEG); URINE COLOR YELLOW; URINE EPITHELIAL CELL AUTO 0-5 /lpf (0-5); URINE NITRITE NEG (NEG); URINE PH 6.5 (4.5-7.5); URINE SPECIFIC GRAVITY 1.007 (1.000-1.030); UROBILINOGEN NEG (NEG); ZZUR CULT IF INDIC CLEAN CATCH NO
[2016-10-07 23:54] LABS: MANUAL MICROSCOPIC REQUIRED? NO; REVIEW REQ? NO
[2016-10-07 23:59] LABS: ALT/SGPT 25 U/L (12-78); AST/SGOT 13 U/L (15-37); BLOOD UREA NITROGEN 10 mg/dl (7-18); BUN/CREATININE RATIO 12.2 (10-20); CALCIUM 8.3 mg/dl (8.5-10.1); CARBON DIOXIDE 30 mmol/L (21-32); CHLORIDE 108 mmol/L (98-107); CREATININE 0.84 mg/dl (0.60-1.40); GLUCOSE 121 mg/dl (70-99); POTASSIUM 3.4 mmol/L (3.5-5.1); SODIUM 144 mmol/L (136-145)
[2016-10-08 00:02] LABS: ALB/GLOB RATIO 1.1 (0.9-2); ALKALINE PHOSPHATASE 78 U/L (45-117); C-REACTIVE PROTEIN < 0.29 mg/dl (0-0.29)
[2016-10-08 00:15] LABS: BENZODIAZEPINE, URINE NEG (NEG); COCAINE,URINE NEG (NEG); PHENCYCLIDINE, URINE NEG (NEG)
[2016-10-08] MEDS ORDERED: PHENERGAN 25MG HOMEPACK PO ONE (00:30)
[2016-10-08 00:43] VITALS: BP 135/79; PULSE 73; O2SAT 97
--- NOTE | 2016-10-08 03:41 | EMERGENCY ROOM VISIT NOTE ---
History First contact with patient: 22:50 Chief Complaint: BACK PAIN Stated Complaint: VOMITING,LOWER BACK PAIN History of Present Illness The patient is a 31 year old male who presents to the Emergency Room with complaints of persistent nausea and vomiting for the past few days. The patient was seen and evaluated at this facility yesterday with this complaint where he was given Zofran and fluids. The patient reported headache symptoms yesterday, and there was some concern for the possibility of meningitis versus other cause of his symptoms. A lumbar puncture was attempted 2 yesterday, however the patient was not overly cooperative with this, and no spinal fluid was obtained. The patient refused further lumbar puncture, and did feel well for discharge home yesterday. The patient states that today he had persistent vomiting, prompting him to return back to the ER today. He does have some mild pain in the area of the lumbar puncture. He continues with a mild headache and rates his overall discomfort an 8/10. He has not had fever or chills. No chest pain or shortness of breath. Review of Systems More than 10 systems were reviewed and otherwise negative with the exception of history of present illness. Past Medical/Surgical History Medical Problems: (1) Asthma, Unspecified (2) Back pain (3) Back pain (4) Closed head injury (5) Concussion (6) Foreign body in eye (7) Foreign body in eye (8) Headache (9) Headache (10) Pain of right great toe (11) Pain, dental (12) Pain, dental (13) Pilonidal cyst without abscess (14) Postoperative pain (15) Sinusitis (16) Sprain of left hand (17) Vasovagal episode Family History Cancer Heart disease Hypertension Social History Smoking Status: Current Every Day Smoker Alcohol Use: none Drug Use: marijuana Marital Status: Housing Status: lives with family Occupation Status: employed Current/Historical Medications No Active Prescriptions or Reported Meds Allergies Coded Allergies: No Known Allergies (Unverified , 10/07/16) Physical Exam Vital Signs Date Time Temp Pulse Resp B/P Pulse Ox O2 Delivery O2 Flow Rate FiO2 10/08/16 00:43 73 20 135/79 97 10/07/16 22:48 36.7 94 16 118/73 96 Room Air Pain Rating (0-10): 6.0 Physical Exam VITALS: Vitals are noted on the nurse's note and reviewed by myself. Vital signs stable. GENERAL: Well-developed, well-nourished, white male, who is in no acute distress and resting comfortably. Patient is cooperative with the examination. HEAD: Normocephalic atraumatic. NECK: Supple without nuchal rigidity. No lymphadenopathy. No thyromegaly. Cervical spine is nontender. No meningismus. HEART: Regular rate and rhythm without murmurs gallops or rubs. LUNGS: Clear to auscultation bilaterally without wheezes, rales or rhonchi. No retractions or accessory muscle use. MUSCULOSKELETAL: No muscle atrophy, erythema, or edema noted. Full range of motion without joint tenderness in all extremities. No distinct tenderness throughout the lumbar spine. There is mild SI joint tenderness. Band aid from previous LP was removed no evidence of erythema or edema. The LP site is non- tender on palpation and there is no fluctuance or drainage. Neurovascular status is intact distally. No saddle paresthesias. NEURO: Patient was alert and oriented to person place and time. CN II through XII grossly intact. Deep tendon reflexes 2+ throughout. Medical Decision & Procedures Laboratory Results 10/07/16 23:25 Red Blood Count 4.20, Mean Corpuscular Volume 89.3, Mean Corpuscular Hemoglobin 30.7, Mean Corpuscular Hemoglobin Concent 34.4, Mean Platelet Volume 9.8, Neutrophils (%) (Auto) 64.6, Lymphocytes (%) (Auto) 25.9, Monocytes (%) (Auto) 6.4, Eosinophils (%) (Auto) 2.3, Basophils (%) (Auto) 0.6, Neutrophils # (Auto) 8.00, Lymphocytes # (Auto) 3.21, Monocytes # (Auto) 0.79, Eosinophils # (Auto) 0.29, Basophils # (Auto) 0.07 10/07/16 23:25 Test 10/07/16 23:25 10/07/16 23:38 White Blood Count 12.38 K/uL (4.8-10.8) Red Blood Count 4.20 M/uL (4.7-6.1) Hemoglobin 12.9 g/dL (14.0-18.0) Hematocrit 37.5 % (42-52) Mean Corpuscular Volume 89.3 fL (80-100) Mean Corpuscular Hemoglobin 30.7 pg (25-34) Mean Corpuscular Hemoglobin Concent 34.4 g/dl (32-36) Platelet Count 237 K/uL (130-400) Mean Platelet Volume 9.8 fL (7.4-10.4) Neutrophils (%) (Auto) 64.6 % Lymphocytes (%) (Auto) 25.9 % Monocytes (%) (Auto) 6.4 % Eosinophils (%) (Auto) 2.3 % Basophils (%) (Auto) 0.6 % Neutrophils # (Auto) 8.00 K/uL (1.4-6.5) Lymphocytes # (Auto) 3.21 K/uL (1.2-3.4) Monocytes # (Auto) 0.79 K/uL (0.11-0.59) Eosinophils # (Auto) 0.29 K/uL (0-0.5) Basophils # (Auto) 0.07 K/uL (0-0.2) RDW Standard Deviation 40.9 fL (36.4-46.3) RDW Coefficient of Variation 12.6 % (11.5-14.5) Immature Granulocyte % (Auto) 0.2 % Immature Granulocyte # (Auto) 0.02 K/uL (0.00-0.02) Erythrocyte Sedimentation Rate 4 mm/hr (0-14) Anion Gap 6.0 mmol/L (3-11) Est Creatinine Clear Calc Drug Dose 133.4 ml/min Estimated GFR () 134.3 Estimated GFR (Non- 115.9 BUN/Creatinine Ratio 12.2 (10-20) Calcium Level 8.3 mg/dl (8.5-10.1) Total Bilirubin 0.3 mg/dl (0.2-1) Aspartate Amino Transf (AST/SGOT) 13 U/L (15-37) Alanine Aminotransferase (ALT/SGPT) 25 U/L (12-78) Alkaline Phosphatase 78 U/L (45-117) C-Reactive Protein < 0.29 mg/dl (0-0.29) Total Protein 6.4 gm/dl (6.4-8.2) Albumin 3.4 gm/dl (3.4-5.0) Globulin 3.0 gm/dl (2.5-4.0) Albumin/Globulin Ratio 1.1 (0.9-2) Lipase 271 U/L (73-393) Urine Color YELLOW Urine Appearance CLEAR (CLEAR) Urine pH 6.5 (4.5-7.5) Urine Specific Langston 1.007 (1.000-1.030) Urine Protein NEG (NEG) Urine Glucose (UA) NEG (NEG) Urine Ketones NEG (NEG) Urine Occult Blood NEG (NEG) Urine Nitrite NEG (NEG) Urine Bilirubin NEG (NEG) Urine Urobilinogen NEG (NEG) Urine Leukocyte Esterase TRACE (NEG) Urine WBC (Auto) 0 /hpf (0-5) Urine RBC (Auto) 0-4 /hpf (0-4) Urine Hyaline Casts (Auto) 0 /lpf (0-5) Urine Epithelial Cells (Auto) 0-5 /lpf (0-5) Urine Bacteria (Auto) NEG (NEG) Urine Opiates Screen POS (NEG) Urine Methadone, Qualitative NEG (NEG) Urine Barbiturates NEG (NEG) Urine Phencyclidine (PCP) Level NEG (NEG) Ur Amphetamine/Methamphetamine NEG (NEG) MDMA (Ecstasy) Screen NEG (NEG) Urine Benzodiazepines Screen NEG (NEG) Urine Cocaine Metabolite NEG (NEG) Urine Marijuana (THC) NEG (NEG) Medications Administered Medications (Trade) Dose Ordered Sig/Will Route Start Time Stop Time Status Last Admin Dose Admin Sodium Chloride (Nss 1000ml) 1,000 ml @ 999 mls/hr Q1H1M ONCE IV 10/07/16 23:30 10/08/16 00:30 DC 10/07/16 23:34 999 MLS/HR Diphenhydramine HCl (Benadryl Inj) 25 mg NOW STAT IV 10/07/16 23:21 10/07/16 23:24 DC 10/07/16 23:35 25 MG Prochlorperazine Edisylate (Compazine Inj) 10 mg NOW STAT IV 10/07/16 23:21 10/07/16 23:24 DC 10/07/16 23:34 10 MG Ketorolac Tromethamine (Toradol Inj) 30 mg NOW STAT IV 10/07/16 23:21 10/07/16 23:24 DC 10/07/16 23:35 30 MG Promethazine HCl (Phenergan 25MG Home Pack) 1 homepack UD ONCE PO 10/08/16 00:30 10/08/16 00:31 DC 10/08/16 00:39 1 [facility] ED Course Physical exam and history were performed. Nursing notes and EMR were reviewed. Patient appears to have persisting nausea and vomiting for the past several days. The patient does not appear toxic on examination. He is without evidence of meningitis or encephalitis. Because of the recent LP I did elect to draw labs. The patient was hydrated and medicated as above. The patient's blood work is as above and was reviewed. His white blood cell count is just slightly elevated at 12,000. This is just slightly elevated from yesterday. He does not have a gross anemia or electrolyte imbalance. His ESR and CRP are both negative. Urine is without evidence of infection. His remaining labs are fairly nondiagnostic. The case was discussed with my attending physician, Dr. Rodríguez. The patient is felt to have a viral gastroenteritis causing his nausea and vomiting. His headache symptoms seemed to improve with hydration and pain medication. The LP site is nontender and I do not appreciate signs of abscess. I do not suspect a spinal headache as the patient did not have removal of any spinal fluid with the attempt yesterday. I suspect his discomfort is simply from the attempt. The patient will need close follow-up by his PCP. I recommended that he follow- up in the next 12-36 hours for a recheck. I discussed the possibility of developing infection, and the patient is to monitor for increasing fever or worsening back pain. He will be given a short course of Phenergan and invited back to the ER with any new, worsening, or concerning symptoms. The chart was completed utilizing [employer] Speech Voice Recognition Software. Grammatical errors, random word insertions, pronoun errors, and incomplete sentences are an occasional consequence of this system due to software limitations, ambient noise, and hardware issues. Any formal questions or concerns about the content, text, or information contained within the body of this dictation should be directly addressed to the provider for clarification. . Medical Decision Differential diagnosis: Etiologies such as gastroenteritis, food borne illness, infections, appendicitis , diverticulitis, inflammatory bowel disease, obstruction, GI bleed, biliary pathology, as well as others were entertained. Impression Primary Impression: Nausea and vomiting Departure Information Dispostion Home / Self-Care Condition GOOD Prescriptions No Active Prescriptions or Reported Meds Forms HOME CARE DOCUMENTATION FORM, IMPORTANT VISIT INFORMATION Patient Instructions My [facility] Additional Instructions You were seen and evaluated today on an emergency basis only. This is not a substitute for, or an effort to provide, complete comprehensive medical care. It is not possible to recognize and treat all injuries or illnesses in a single emergency department visit. For this reason it is recommended that you followup with your primary care physician in the next 12-36 hours for recheck of your condition. You may use Phenergan 25 mg (homepack) every 6 hours as needed for nausea Drink clear fluids and remain well hydrated. You are welcome to return to the emergency department anytime with new, worsening, or concerning symptoms.
[2016-10-10 09:06] LABS: COD UR NEGATIVE NG/ML (CUTOFF=50); HYDROCOD UR NEGATIVE NG/ML (CUTOFF=50); HYDROMOR UR NEGATIVE NG/ML (CUTOFF=50); MORPHINE UR 923 NG/ML (CUTOFF=50); NORHYDROCODONE CONF UR NEGATIVE NG/ML (CUTOFF=50); OXYMORPH UR NEGATIVE NG/ML (CUTOFF=50)
== END 2016-10-08 00:44 | disposition home or self-care (01) ==
LOC: C.EDB 22:47 → C.EDA 10-08 00:44
DX: R11.2 Nausea with vomiting, unspecified (principal); J45.909 Unspecified asthma, uncomplicated; Z80.9 Family history of malignant neoplasm, unspecified; Z82.49 Family history of ischemic heart disease and other diseases of the circulatory system; F17.210 Nicotine dependence, cigarettes, uncomplicated

== ENCOUNTER 2016-10-16 14:35 | Emergency (ER) | payer OTHER ==
[~2016-10-16] VITALS: Ht 193 cm; Wt 73.1 kg
[2016-10-16 14:50] VITALS: TEMP 36.7; Ht 193 cm; Wt 73.1 kg
[2016-10-16 15:29] VITALS: BP 112/72; PULSE 68; O2SAT 98
--- NOTE | 2016-10-16 15:29 | EMERGENCY ROOM VISIT NOTE ---
ED Visit Note First contact with patient: 14:58 CHIEF COMPLAINT: Head injury 3 hours ago HISTORY OF PRESENT ILLNESS: Patient is an otherwise healthy 31-year-old white male who presents to the emergency department for evaluation after he sustained a head injury while trimming a tree about 3 hours ago. He should reports that he was up in a tree, taking down a limb. The limb got caught up in the limb got caught up on another branch, so he climbed down out of the tree and was going to pull the branch down with a rope. When he got down on the ground however a cast of wind blew the limb out of the tree, and he was unable to get out of the way. He was wearing a hardhat which he states the limb knocked off, then struck him on the top of the head. He reports that it was roughly 3 inches in diameter. He states that he was initially dazed and dizzy, but did not lose consciousness. He denies noticing any bleeding from the area. He states that he continued working on the tree, then was taken home by his friend. While at home, he noted a progressively worsening throbbing 9/10 headache, with associated blurry vision. He had Vicodin left over from his recent right elbow surgery which he took. He denies any associated nausea or vomiting. He has some minor discomfort in his neck which he states is chronic for him. He denies any numbness, tingling or weakness in the extremities. He denies any difficulty with balance, speech or coordination. He has been able to eat and drink without difficulty. Patient has a history of multiple closed head injuries/concussions. Patient was also seen and evaluated in emergency department about 10 days ago for a nausea and vomiting illness that she states is unrelated to his present injury. REVIEW OF SYSTEMS: Review of systems as per HPI. All other systems reviewed were negative. 10 systems reviewed. PMH: Electronic medical records are reviewed and summarized as above/below. See Problem List. Patient has a history of head injuries and concussions. SOCIAL HISTORY: Patient lives at home with his and children. Positive tobacco use, denies alcohol use. PHYSICAL EXAM: Vital Signs: Reviewed Nurse's notes. CONSTITUTIONAL: Patient is a well-appearing 31-year-old white male who is awake and alert and laying on the gurney in no acute distress. He is talking on his cell phone. HEENT: Right-sided parietal hematoma, with small abrasion noted. No depressed skull fractures appreciated. Pupils equal, round, reactive to light and accommodation. EOMs intact without nystagmus. Sclera are anicteric. Tympanic membranes intact, with normal landmarks. External canals are clear. No hemotympanum or Jordan sign. Oral and nasopharynx are clear. No CSF rhinorrhea. Mucous membranes are moist. NECK: Supple, nontender, no lymphadenopathy. Full range of motion. HEART: Regular rate and rhythm, with normal S1 and S2, no murmur or gallop or rub is heard. LUNGS: Breath sounds equal and clear to auscultation without wheezes, rales, or rhonchi heard. SKIN: No lesions or rash, normal skin turgor. EXTREMITIES: No cyanosis, edema, joint tenderness or swelling. No deformity. NEUROLOGICAL: Alert and oriented x4. Cranial nerves 2 through 12, sensation and strength grossly intact. Gait is normal. Patient is able to toe, heel and tandem walk without difficulty. Negative Romberg, and pronator drift. Finger to nose, finger to finger and rapid alternating movements are intact. Immediate , recent and remote memories are intact. Concentration is normal. ED course: The patient was seen and evaluated as above. His old records are reviewed. He has had a total of 5 head CTs between 2013 and 2017, his last was just 10 days ago when he was evaluated for headache, nausea and vomiting. Treatment options were discussed with the patient. He has a benign neurologic exam at this time. He was wearing head protection, and given his benign exam and the mechanism of injury, I did not feel that he required a head CT at this time. I did discuss the risks, benefits and alternatives to neuro imaging with a CT scan with the patient at length, and he was in agreement. Head injury instructions were outlined with him at length. He was educated on the worrisome signs or symptoms for which he should return to the emergency department. Differential diagnoses entertained included head contusion, skull fracture, acute intracranial bleed, concussion, cervical spine injury, among others. Patient was reviewed in the [facility] Prescription Drug Monitoring Program. He has received 23 narcotic prescriptions in the last 12 months, his last was in July of this year. Problem List Medical Problems: (1) Altered mental status Status: Resolved (2) Asthma, Unspecified Status: Chronic (3) Back pain Status: Resolved (4) Back pain Status: Resolved (5) Closed head injury Status: Resolved (6) Concussion Status: Resolved (7) Corneal abrasion Status: Resolved (8) Dehydration Status: Resolved (9) Dehydration Status: Resolved (10) Diarrhea Status: Resolved (11) Epigastric abdominal pain Status: Resolved (12) Foreign body in eye Status: Resolved (13) Foreign body in eye Status: Resolved (14) Hand contusion Status: Resolved (15) Hand laceration Status: Resolved (16) Headache Status: Resolved (17) Headache Status: Resolved (18) Low back pain Status: Resolved (19) Nausea and vomiting Status: Resolved (20) Nausea and vomiting Status: Resolved (21) Pain of right great toe Status: Resolved (22) Pain, dental Status: Resolved (23) Pain, dental Status: Resolved (24) Periapical abscess Status: Resolved (25) Pilonidal cyst without abscess Status: Resolved (26) Postoperative pain Status: Resolved (27) Right elbow pain Status: Resolved (28) Right elbow pain Status: Resolved (29) Sinusitis Status: Resolved (30) Sprain of left hand Status: Resolved (31) Vasovagal episode Status: Resolved (32) Vomiting Status: Resolved (33) Vomiting Status: Resolved Surgical Problems: (1) H/O elbow surgery Status: Resolved Current/Historical Medications No Active Prescriptions or Reported Meds Allergies Coded Allergies: No Known Allergies (Unverified , 10/07/16) Vital Signs Date Time Temp Pulse Resp B/P Pulse Ox O2 Delivery O2 Flow Rate FiO2 10/16/16 15:29 68 18 112/72 98 Room Air 10/16/16 14:50 36.7 73 18 185/66 98 Room Air Departure Information Impression Primary Impression: Closed head injury Additional Impression: Scalp contusion Prescriptions No Active Prescriptions or Reported Meds Referrals Valentina Rodriguez PA-C (PCP) Patient Instructions [facility] Additional Instructions CONCUSSION DISCHARGE INSTRUCTIONS: What is a concussion? A concussion is a disturbance in the function of the brain caused by a direct or indirect force to the head. It results in a variety of symptoms like: headache, balance problems, nausea, vomiting, vision problems, hearing problems/ringing, drowsiness, irritability, and/or difficulty concentrating or remembering. A concussion may, or may not involve memory problems or loss of consciousness. Concussion instructions: Stop and stay away from ALL physical activity until you are symptom free from: Headaches Balance problems Feeling "dinged" Poor concentration Drowsy Fatigued Rest and avoid strenuous activities for the next few days. Get 8-10 hours of sleep per night. Limit activities that involve significant concentration and attention during this time to speed your recovery. This includes studying, attending school, playing video games, and heavy reading. Your brain needs to rest. Eat right and eat often. Now is the time to feed your brain. Well balanced diets that avoid high sugar foods, sodas, caffeine, etc. are better for your brain. NO ALCOHOL OR DRUGS! Avoid stimulants like caffeine, red bull, mountain dew, "energy" drinks, etc. Tylenol(acetaminophen) may be used for headaches. Use 1000mg every six hours as needed. Avoid using more than 3000mg in a 24 hour period. Avoid anti-inflammatories such as aspirin, ibuprofen, Alleve, naprosyn, Motrin, or Advil as these can interfere with blood clotting and lead to bleeding within the brain after a traumatic injury. Stepwise return to sports for athletes: You may progress to the next step after 24 hours if you are symptom free. If you experience symptoms, you must return to the previous stage and try again after another 24 hours of rest and being symptom free. Best case scenario is full contact game play in 96 hours from the time of injury. Remember repeat concussions are worse than the first. Time invested in recovery will allow for better performance and less downtime in the future. If you have any questions see your hydraulic strainer operator or make an appointment to see one of the team physicians. 1) No activity, complete rest. Once all symptoms have resolved, report to the team physician or hydraulic strainer operator to be cleared to progress to step 2. 2) Start light aerobic exercise, such as walking or stationary cycling, no resistance training permitted. 3) Sport specific exercises. Add light resistance slowly. Go slow to allow your body to readapt. 4) Non-contact full speed practice. 5) Full contact practice and/or game play. FOLLOW UP INSTRUCTIONS: You should have a follow up with your family doctor in 3-5 days regarding your injury. POST CONCUSSIVE SYNDROME: Occasionally patients can experience a postconcussive syndrome which includes prolonged headaches and memory difficulties. This may occur over the next several days, weeks or rarely, even months. It is important to have a primary care physician follow-up in order to help if the situation develops. Problems could arise over the next 24 to 48 hours. You should not be left alone and MUST go to the hospital immediately if you: -Have a headache that suddenly gets worse. -Are very drowsy or cannot be woken up from sleep. -Can't recognize people or places. -Have repeated vomiting. -Behave unusually, seemed confused, or start acting irritable. -Have a seizure (arms and legs start jerking uncontrollably). -Have weak or numb arms or legs. -Are unsteady on your feet -Experience slurred speech or difficulty speaking. Problem Qualifiers
== END 2016-10-16 15:38 | disposition home or self-care (01) ==
LOC: C.EDB 14:37 → C.EDD 15:38
DX: S09.90XA Unspecified injury of head, initial encounter (principal); S00.03XA Contusion of scalp, initial encounter; W20.8XXA Other cause of strike by thrown, projected or falling object, initial encounter; Y92.89 Other specified places as the place of occurrence of the external cause; Y99.0 Civilian activity done for income or pay; J45.909 Unspecified asthma, uncomplicated; Z87.820 Personal history of traumatic brain injury; Z87.828 Personal history of other (healed) physical injury and trauma

== ENCOUNTER 2016-11-24 22:52 | Emergency (ER) | payer OTHER ==
[~2016-11-24] VITALS: Ht 193 cm; Wt 73.7 kg
[2016-11-24 22:59] VITALS: TEMP 36.4; Ht 193 cm; Wt 73.7 kg
[2016-11-24] MEDS ORDERED: LIDO/EPINEPHRINE/SOD BICARB 20 ML VIAL INFIL ONE (23:29)
[2016-11-24] MEDS ORDERED: HYDROCODONE/ACETAMOPHEN 5/325MG TAB PO ONE (23:30)
[2016-11-24] MEDS ORDERED: XYLOCAINE 1%/SOD BICARB 20 ML VIAL INFIL ONE (23:30)
[2016-11-25] MEDS ORDERED: CEPH500C2 PO (00:12)
[2016-11-25] MEDS ORDERED: HYDR-5688 PO (00:12)
[2016-11-25] MEDS ORDERED: NORCO 5/325MG HOME PACK PO ONE (00:15)
[2016-11-25] MEDS ORDERED: CEPHALEXIN 500MG HOME PACK 1 EA BTL PO ONE (00:15)
[2016-11-25 00:22] VITALS: BP 121/68; PULSE 78; O2SAT 98
--- NOTE | 2016-11-25 06:59 | DIAGNOSTIC IMAGING REPORT ---
LEFT HAND MIN 3 VIEWS ROUTINE CLINICAL HISTORY: L hand pain; transmission fell on hand COMPARISON: Left hand radiographs March 09, 2016. FINDINGS: Alignment of the left hand is anatomic. No acute fracture is identified. Carpal bones are intact. IMPRESSION: No acute fracture or dislocation of the left hand. Electronically signed by: Deepak Zuñiga M.D. 11/25/2016 6:58 AM Dictated Date/Time: 11/25/2016 6:55 AM
--- NOTE | 2016-11-26 00:26 | EMERGENCY ROOM VISIT NOTE ---
ED Visit Note First contact with patient: 23:06 Chief Complaint: I had 1000 pound transmission fall on my left hand. History of Present Illness: Mr. Baer is a 31-year-old white male who ambulates into the ED complaining of left hand pain and laceration. Patient reports he was working on 1000 pound transmission when it fell onto his left hand approximately 30 minutes ago. He reports since that time he has been having severe pain in the left hand and went transmission was lifted office and he noted a laceration to the middle finger. Currently he complains of pain throughout the middle and ring finger including the MCP, PIP and DIP joints. He describes the pain as sharp and throbbing. He rates his discomfort 9/10. His pain is nonradiating. His pain worsens with all movements of the middle and ring finger, palpation and palpation of the palm over the third and fourth metacarpals. He has not identified any alleviating factors related to the pain. Has not taken any medications for pain prior to arrival at the hospital. Review of Systems: As noted above in history of present illness. 8 body systems were reviewed and found to be negative as noted above. Past Medical History: Unspecified right arm surgery. Current Medications: Patient denies. Allergies to Medications: Patient denies. Social History: Patient is currently employed; he lives with his and children and feels safe in his home environment; he admits to tobacco use and denies alcohol use. Tetanus Immunization Status: Patient reports up-to-date; 2010. Physical Examination: Vital Signs: Date Time Temp Pulse Resp B/P (MAP) Pulse Ox O2 Delivery O2 Flow Rate FiO2 11/25/16 00:22 78 16 121/68 98 11/24/16 23:43 74 16 113/54 98 Room Air 11/24/16 22:59 36.4 97 18 121/79 98 Room Air GENERAL: 31-year-old male in moderate distress due to pain, nontoxic-appearing, afebrile and hemodynamically stable. NEUROLOGICAL: Awake, alert and oriented to person, place and time. Answering questions appropriately and following commands. Normal gait. SKIN: Warm, dry and pink. Right Hand: 1.4 cm full-thickness laceration over the ulnar aspect of the right middle finger at the PIP level. Minimal bleeding. RIGHT HAND: No gross bony deformity. Laceration as noted above under SKIN. Tenderness throughout the middle aspect of the hand including the second, third and fourth metacarpal, the third and fourth MCP joint, the third and fourth proximal and middle phalanges and the third and fourth PIP joints. I did not appreciate any bony deformity or crepitus. Because of pain he refused to move his MCP and PIP joints. The hand was dirty but capillary refill was observed. He was able to distinguish light sensations but does report there were numbness and tingling in the fingers. ED Course: Patient is assessed as noted above. Patient's medication list was reviewed. Patient was given one Brooten 5/325 mg tablet by mouth for pain and a digital block to the middle finger was performed with 2.8 mL of buffered 1% lidocaine. Right Hand X-Rays: Were read by myself and the radiologist showing no acute fractures, dislocations or foreign bodies. Wound Repair: Complexity: Basic Verbal consent was obtained after the risks and benefits were explained. The skin was prepped with betadine and a sterile field set. The wound was explored and a few pieces of small particulate matter were removed. It is Patient's middle finger was scrubbed with a surgical brush to remove dirt and oil. Copious irrigation was performed using sterile saline. With direct pressure the bleeding subsided. Debridement was not performed. The wound edges were approximated using 5-0 Ethilon with 2 simple interrupted sutures. Hemostasis and excellent approximation was achieved. Antibacterial ointment and a sterile dressing applied. No complications and the patient tolerated the procedure well. Patient's middle finger was placed in a metal finger splint. Patient and were educated about tonight's findings and instructed on his treatment plan; they verbalizes understanding and agreement with this plan. Clinical Impression: Laceration of the right middle finger. Crushing injury to the right hand. Disposition: Patient discharged home in stable condition; prior to departure he was reassessed and subjectively reported he was feeling better and rated his discomfort 6/10. Plan: Comfort measures, wound care, and signs of infection were discussed with the patient and his . Patient did receive a home pack and a prescription for Brooten; he was given appropriate narcotic precautions and his name was checked on the state database in no red flags were noted. Patient was also given a home pack and a prescription for cephalexin 500 mg 4 times a day for 7 days for prophylaxis. Patient was encouraged to follow-up with his PCP or return to the ED for any signs of infection and/or suture removal in 10-12 days.
--- NOTE | 2016-11-27 09:45 | EDITING REQUIRED CODING QUERY ---
CODING QUERY To promote full compliance with coding requirements relating to patient care, provider participation is requested in all cases of medical records coder uncertainty. Please assist us with the question(s) below: Coding Question(s): Please clarify laterality. Beginning of ED report lists injury was to patients' left hand. Other areas of report state right hand. Physician's Response(s): Injury was to the LEFT HAND and fingers Thank you Annie Morales Principal Diagnosis: "_that condition established after study, to be chiefly responsible for occasioning the admission of the patient to the hospital for care." Co-Existing Principal Diagnosis: "_when two or more diagnoses equally meet the criteria for principal diagnosis as determined by the circumstances of admission, diagnostic work up, and/or therapy provided, and the Alphabetic Index, Tabular List, or another coding guideline does not provide sequencing direction, any one of the diagnoses may be sequenced first." "When the physician has documented what appears to be a current diagnosis in the body of the record, but has not included the diagnosis in the final diagnostic statement, the physician should be asked whether the diagnosis should be added." ([facility] 2 QTR90. p3-4)
== END 2016-11-25 00:20 | disposition home or self-care (01) ==
LOC: C.EDB 22:53 → C.EDC 11-25 00:20
DX: S61.213A Laceration without foreign body of left middle finger without damage to nail, initial encounter (principal); S67.22XA Crushing injury of left hand, initial encounter; W24.1XXA Contact with transmission devices, not elsewhere classified, initial encounter; F17.200 Nicotine dependence, unspecified, uncomplicated

== ENCOUNTER 2017-02-24 21:32 | Emergency (ER) | payer OTHER ==
[~2017-02-24] VITALS: Ht 193 cm; Wt 74.1 kg
[~2017-02-24 21:32] MED LIST changes: -ACET-1256 PO; +HYDR-5688 PO; -MULT-506 PO; -OXYC1TAB3 PO; -VNTHFA/IN INH
[2017-02-24 21:37] VITALS: TEMP 36.9; Ht 193 cm; Wt 74.1 kg
[2017-02-24] MEDS ORDERED: NAPR1TAB9 PO (22:46)
[2017-02-24] MEDS ORDERED: PRED50TA PO (23:50)
--- NOTE | 2017-02-24 23:51 | EMERGENCY ROOM VISIT NOTE ---
History First contact with patient: 21:53 Chief Complaint: NECK PAIN Stated Complaint: PAIN R SIDE OF NECK DOWN R ARM History of Present Illness The patient is a 31 year old male who presents to the Emergency Room with complaints of neck pain with radiation to the right arm. The patient states that he has had pain in the right side of the neck with radiation down the arm for the past one week. He reports that he slid down a tree one week ago prior to the onset of pain. He denies any neck injury secondary to this, but did have some bruising of the right side of the ribs. The patient went to his chiropractor without relief. He does have history of chronic neck problems, but states this pain has been worsening for the past week. He has been taking hydrocodone, which he is prescribed by pain management for his chronic pain without relief. He does report some tingling in the right arm. He denies numbness or weakness. He rates his discomfort a 10/10. He denies any chest pain or shortness of breath. Review of Systems A complete 10 point review of systems was reviewed with the patient with pertinent positives and negatives as per history of present illness. All else were negative. Past Medical/Surgical History Medical Problems: (1) Altered mental status (2) Asthma, Unspecified (3) Back pain (4) Back pain (5) Closed head injury (6) Concussion (7) Corneal abrasion (8) Dehydration (9) Dehydration (10) Diarrhea (11) Epigastric abdominal pain (12) Foreign body in eye (13) Foreign body in eye (14) Hand contusion (15) Hand laceration (16) Headache (17) Headache (18) Low back pain (19) Nausea and vomiting (20) Nausea and vomiting (21) Pain of right great toe (22) Pain, dental (23) Pain, dental (24) Periapical abscess (25) Pilonidal cyst without abscess (26) Postoperative pain (27) Right elbow pain (28) Right elbow pain (29) Sinusitis (30) Sprain of left hand (31) Vasovagal episode (32) Vomiting (33) Vomiting Surgical Problems: (1) H/O elbow surgery Family History Cancer Heart disease Hypertension Social History Smoking Status: Current Every Day Smoker Alcohol Use: none Drug Use: marijuana Marital Status: Housing Status: lives with family Occupation Status: employed Current/Historical Medications Scheduled Naproxen (Aleve), 880 MG PO PRN Scheduled PRN Hydrocodone/Acetaminophen 5MG/325MG ([place] 5MG/325MG), 1-2 TABLET PO Q6 PRN for Pain Physical Exam Vital Signs Date Time Temp Pulse Resp B/P (MAP) Pulse Ox O2 Delivery O2 Flow Rate FiO2 02/25/17 00:02 56 18 111/76 98 02/24/17 23:20 56 18 111/76 98 Room Air 02/24/17 21:37 36.9 79 18 131/77 99 Room Air Physical Exam VITALS: Vitals are noted on the nurse's note and reviewed by myself. Vital signs stable. GENERAL: This is a 31-year-old male, in no acute distress, nondiaphoretic, well- developed well-nourished. HEART: Regular rate and rhythm without murmurs gallops or rubs. LUNGS: Clear to auscultation bilaterally without wheezes, rales or rhonchi. MUSCULOSKELETAL: There is vague tenderness to palpation of the right-sided neck and right trapezius muscle. Full range of motion of bilateral upper extremity. Strength 5/5 in the right upper extremity. NEURO: Patient was alert and oriented to person place and time. Normal sensation to light and sharp touch. Medical Decision & Procedures ER Provider Diagnostic Interpretation: CT C SPINE: No acute fracture or subluxation identified. C4 limbus vertebra. Stable mild degenerative changes of the cervical spine. Probable similar borderline spinal canal stenosis at C3-4, C4-5, and C5-6. Mucosal thickening in the partially visualized maxillary sinuses and sphenoid sinuses and ethmoid air cells. Scattered small lymph nodes are likely reactive. Radiologist: Akhil Enriquez MD Medical Decision Differential diagnosis includes cervical radiculopathy, cord compression, muscular strain, among others. The patient was evaluated as above. CT of the C-spine was performed and showed no acute surgical findings. This seems to be similar from previous MRI. The patient has had issues with the neck in the past and has seen orthopedic spine. I recommended that the patient follow up with them for further treatment. He does have pain medication at home and was advised to take this as prescribed. The patient verbalized understanding of my assessment and treatment plan and was discharged home in good condition. [place] Drug Monitoring Program Search Results: patient reviewed within database (patient receives monthly narcotic prescriptions from pain management) Medication Reconcilliation Current Medication List: was personally reviewed by me Blood Pressure Screening Patient's blood pressure: Normal blood pressure Impression Primary Impression: Cervical radiculopathy Departure Information Dispostion Home / Self-Care Condition GOOD Referrals Valentina Rodriguez PA-C (PCP) Patient Instructions My [facility] Additional Instructions You have been prescribed Prednisone. This is a steroid which will help decrease your inflammation. Take this medicine as prescribed. Take the ENTIRE 4 day course. It is best to take steroids early in the morning as PM dosing can affect your sleeping patterns. For pain control, you can use the following [id number] medicines (if >12 yo): - Regular strength (325mg/tab) Tylenol (acetaminophen) 2 tabs every 4-6 hours as needed. Do not exceed 12 tablets in a 24 hour period. Avoid taking more than 4 grams (4000 mg) of Tylenol per day. This includes any other sources of acetaminophen you may take on a regular basis. - Regular strength (200 mg/tab) Advil (ibuprofen) 1-2 tabs every 4-6 hours as needed. Do not exceed a dose of 3200 mg per day. Follow-up with your primary care provider this week for further evaluation. Return here for intractable pain, numbness, weakness or any new/concerning symptoms.
[2017-02-25 00:02] VITALS: BP 111/76; PULSE 56; O2SAT 98
--- NOTE | 2017-02-25 06:09 | DIAGNOSTIC IMAGING REPORT ---
CERVICAL SPINE W/O CT DOSE: 246.92 mGy.cm HISTORY: Pain. Radiculopathy. right neck pain, radiation into arm TECHNIQUE: Multiaxial CT images of the cervical spine were performed and reformatted in the sagittal and coronal plane without the use of contrast. A dose lowering technique was utilized adhering to the principles of ALARA. COMPARISON: 01/11/2015 FINDINGS: Vertebral body stature is unremarkable. Intervertebral discs are in general well-preserved. C1-C2 complex is intact. Probable mild narrowing of the spinal canal from C3 through C6. IMPRESSION: No fractures within the cervical spine.. No acute process. Probable mild narrowing of the spinal canal from C3 through C6. The above report was generated using voice recognition software. It may contain grammatical, syntax or spelling errors. Electronically signed by: Kristopher Allison M.D. 02/25/2017 6:08 AM Dictated Date/Time: 02/25/2017 6:07 AM
== END 2017-02-25 00:10 | disposition home or self-care (01) ==
LOC: C.EDB 21:34
DX: M54.2 Cervicalgia (principal); G89.29 Other chronic pain; J45.909 Unspecified asthma, uncomplicated; Z80.9 Family history of malignant neoplasm, unspecified; Z82.49 Family history of ischemic heart disease and other diseases of the circulatory system; F17.210 Nicotine dependence, cigarettes, uncomplicated; F12.90 Cannabis use, unspecified, uncomplicated

== ENCOUNTER 2017-07-12 15:46 | Emergency (ER) | payer OTHER ==
[~2017-07-12] VITALS: Ht 193 cm; Wt 78.0 kg
[~2017-07-12 15:46] MED LIST changes: -HYDR-5688 PO; +NAPR1TAB9 PO
[2017-07-12 15:48] VITALS: Ht 193 cm; Wt 78.0 kg
--- NOTE | 2017-07-12 16:02 | EMERGENCY ROOM VISIT NOTE ---
History First contact with patient: 15:50 Chief Complaint: DENTAL PAIN Stated Complaint: TOOTH ACHE Nursing Triage Summary: pt to the ED with c/o left lower dental pain with c/o facial swelling yesterday and something popped and the swelling in better and it was filled with green stuff History of Present Illness The patient is a 32 year old male who presents to the Emergency Room with complaints of dental pain. The patient states that he has had left lower dental pain for the past 4 weeks. He reports he has intermittent facial swelling. He has an appointment in 7 months to have all of his teeth removed. He reports that yesterday, a pocket of pus in his left lower teeth popped and he spit out some greenish pus tinged with blood. He has a prescription for hydrocodone and has been taking this as well as ibuprofen and Tylenol without relief. He rates his discomfort a 9/10. He is a smoker. He denies fevers, difficulty swallowing or difficulty breathing. Review of Systems A complete 10 point review of systems was reviewed with the patient with pertinent positives and negatives as per history of present illness. All else were negative. Past Medical/Surgical History Medical Problems: (1) Altered mental status (2) Asthma, Unspecified (3) Back pain (4) Back pain (5) Closed head injury (6) Concussion (7) Corneal abrasion (8) Dehydration (9) Dehydration (10) Diarrhea (11) Epigastric abdominal pain (12) Foreign body in eye (13) Foreign body in eye (14) Hand contusion (15) Hand laceration (16) Headache (17) Headache (18) Low back pain (19) Nausea and vomiting (20) Nausea and vomiting (21) Pain of right great toe (22) Pain, dental (23) Pain, dental (24) Periapical abscess (25) Pilonidal cyst without abscess (26) Postoperative pain (27) Right elbow pain (28) Right elbow pain (29) Sinusitis (30) Sprain of left hand (31) Vasovagal episode (32) Vomiting (33) Vomiting Surgical Problems: (1) H/O elbow surgery Family History Cancer Heart disease Hypertension Social History Smoking Status: Current Every Day Smoker Alcohol Use: none Drug Use: marijuana Marital Status: Housing Status: lives with family Occupation Status: employed Current/Historical Medications Scheduled Hydrocodone/Acetaminophen 5MG/325MG ([place] 5MG/325MG), 1 TAB PO BID Penicillin V Potassium (Veetids), 500 MG PO QID Scheduled PRN Albuterol Hfa (Ventolin Hfa), 2 PUFFS INH Q6H PRN for SOB/Wheezing Physical Exam Vital Signs Date Time Temp Pulse Resp B/P (MAP) Pulse Ox O2 Delivery O2 Flow Rate FiO2 07/12/17 16:17 36.7 101 16 141/85 98 07/12/17 15:48 36.7 101 16 141/85 98 Physical Exam VITALS: Vitals are noted on the nurse's note and reviewed by myself. Vital signs stable. GENERAL: This is a 32-year-old male, in no acute distress, nondiaphoretic, well- developed well-nourished. SKIN: The skin was without rashes. EARS: External auditory canals clear, tympanic membranes pearly monzon without erythema or effusion bilaterally. EYES: Pupils equal round and reactive to light and accommodation. NOSE: Patent, turbinates without inflammation or discharge. No sinus tenderness. MOUTH: Mucous membranes moist. The left lower molars are extremely carious. There is mild surrounding erythema. There is no significant edema or drainage. There is no facial swelling. NECK: Supple without nuchal rigidity. No lymphadenopathy. NEURO: Patient was alert and oriented to person place and time. Medical Decision & Procedures Medical Decision Differential diagnosis includes dental abscess, dental infection, Eder's angina, among others. The patient was evaluated as above. On exam he has no significant facial swelling or evidence of an abscess. He will be placed on penicillin and was instructed to follow-up with his dentist. He verbalized understanding of my assessment and treatment plan and was discharged home in good condition. Medication Reconcilliation Current Medication List: was personally reviewed by me Blood Pressure Screening Patient's blood pressure: Elevated blood pressure Blood pressure disposition: Elevated BP felt to be situational Impression Primary Impression: Pain, dental Departure Information Dispostion Home / Self-Care Condition GOOD Prescriptions Penicillin V Potassium (Veetids) 500 Mg Tab 500 MG PO QID for 10 Days, #40 TAB Prov: Chelsey Mccoy .TREY 07/12/17 Referrals Valentina Rodriguez PA-C (PCP) Patient Instructions My [facility] Additional Instructions You have been treated in the Emergency Department for Dental Pain. You were prescribed Pen VK to be taken as prescribed. This is an antibiotic. All antibiotics have the potential to cause diarrhea. Stop this medication and contact a medical provider if you were to develop any significant adverse side effects including: wheezing, shortness of breath, passing out, vomiting, or a diffuse rash. Always take antibiotics as directed and COMPLETE the ENTIRE course regardless of the improvement of your symptoms. For pain control, you can use the following [id number]-ttimvek medicines (if >12 yo): - Regular strength (325mg/tab) Tylenol (acetaminophen) 2 tabs every 4-6 hours as needed. Do not exceed 12 tablets in a 24 hour period. Avoid taking more than 4 grams (4000 mg) of Tylenol per day. This includes any other sources of acetaminophen you may take on a regular basis. - Regular strength (200 mg/tab) Advil (ibuprofen) 1-2 tabs every 4-6 hours as needed. Do not exceed a dose of 3200 mg per day. Refrain from smoking cigarettes or using chewing tobacco until you have been evaluated by your dentist. Keeping beverages lukewarm and consuming soft foods can decrease your pain. Warm compresses over the affected area may offer some relief. You MUST seek evaluation of your dental pain by a dentist following your visit to the Emergency Department. The Emergency Department is not capable of treating dental issues long-term. You should call your dentist as soon as possible to make an appointment for evaluation of your dental pain. Return to the emergency department if you develop the following symptoms despite treatment course outlined above: fever, intractable pain, increased redness, swelling, or purulent discharge.
[2017-07-12] MEDS ORDERED: PENI-82 PO (16:07)
[2017-07-12 16:17] VITALS: BP 141/85; PULSE 101; TEMP 36.7; O2SAT 98
[2017-07-12] MEDS ORDERED: VNTHFA/IN INH (16:24)
[2017-07-12] MEDS ORDERED: HYDR-5688 PO (16:24)
== END 2017-07-12 16:18 | disposition home or self-care (01) ==
LOC: C.EDB 15:47 → C.EDD 16:18
DX: K08.89 Other specified disorders of teeth and supporting structures (principal); J45.909 Unspecified asthma, uncomplicated; F17.210 Nicotine dependence, cigarettes, uncomplicated; Z80.9 Family history of malignant neoplasm, unspecified; Z82.49 Family history of ischemic heart disease and other diseases of the circulatory system

== ENCOUNTER 2017-08-01 12:48 | Emergency (ER) | payer OTHER ==
[~2017-08-01] VITALS: Ht 193 cm; Wt 81.2 kg
[~2017-08-01 12:48] MED LIST changes: +HYDR-5688 PO; -NAPR1TAB9 PO; +VNTHFA/IN INH
[2017-08-01 12:52] VITALS: TEMP 36.8; Ht 193 cm; Wt 81.2 kg
[2017-08-01] MEDS ORDERED: IBUPROFEN 200 MG TAB PO STA (13:24)
[2017-08-01] MEDS ORDERED: OXYCODONE/ACETAMINOPHEN 5-325 TAB PO STA (13:24)
--- NOTE | 2017-08-01 13:44 | EMERGENCY ROOM VISIT NOTE ---
History First contact with patient: 13:11 Chief Complaint: KNEEPAIN Stated Complaint: KNEE PAIN History of Present Illness The patient is a 32 year old male who presents to the Emergency Room with complaints of left knee pain for the last 10 days. 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 He had a very heavy log hit him on the outside of the knee. Increased pain with flexion of the knee. The patient has tried ibuprofen, Aleve and Harold with minimal relief. He is able to bear weight on the knee. He is also having pain into the mid tibia. He denies any ankle pain. No hip pain. Review of Systems 6 system review negative. Please see pertinent positives in the history of present illness section. Past Medical/Surgical History Medical Problems: (1) Altered mental status (2) Asthma, Unspecified (3) Back pain (4) Back pain (5) Closed head injury (6) Concussion (7) Corneal abrasion (8) Dehydration (9) Dehydration (10) Diarrhea (11) Epigastric abdominal pain (12) Foreign body in eye (13) Foreign body in eye (14) Hand contusion (15) Hand laceration (16) Headache (17) Headache (18) Low back pain (19) Nausea and vomiting (20) Nausea and vomiting (21) Pain of right great toe (22) Pain, dental (23) Pain, dental (24) Periapical abscess (25) Pilonidal cyst without abscess (26) Postoperative pain (27) Right elbow pain (28) Right elbow pain (29) Sinusitis (30) Sprain of left hand (31) Vasovagal episode (32) Vomiting (33) Vomiting Surgical Problems: (1) H/O elbow surgery Family History Cancer Heart disease Hypertension Social History Smoking Status: Current Every Day Smoker Alcohol Use: none Drug Use: marijuana Marital Status: Housing Status: lives with family Occupation Status: employed Current/Historical Medications Scheduled Hydrocodone/Acetaminophen 5MG/325MG (Harold 5MG/325MG), 1 TAB PO BID Scheduled PRN Albuterol Hfa (Ventolin Hfa), 2 PUFFS INH Q6H PRN for SOB/Wheezing Tramadol (Ultram), 50 MG PO Q4H PRN for Pain Physical Exam Vital Signs Date Time Temp Pulse Resp B/P (MAP) Pulse Ox O2 Delivery O2 Flow Rate FiO2 08/01/17 15:12 62 18 122/70 98 Room Air 08/01/17 12:52 36.8 76 17 131/75 99 Room Air Physical Exam VITALS: Vitals are noted on the nurse's note and reviewed by myself. Vital signs stable. GENERAL: 32-year-old male, in no acute distress, nondiaphoretic, well-developed well-nourished. SKIN: The skin was intact HEAD: Normocephalic atraumatic. MUSCULOSKELETAL: Ecchymosis noted to the medial aspect of the left knee. Pain with flexion. Pain with valgus stress. No ligamentous instability appreciated on exam. Distal pulses +2. Mild nonpitting edema noted over the mid tibia. No tenderness over the medial or lateral malleolus. NEURO: Patient was alert and oriented to person place and time. Normal sensation to touch. No focal neurological deficits. Medical Decision & Procedures ER Provider Diagnostic Interpretation: tib/fib xray IMPRESSION: 1. No bony abnormality is identified 2. Small phlebolith within the anterior soft tissues Electronically signed by: Guanakito Lerma M.D. 08/01/2017 1:49 PM Dictated Date/Time: 08/01/2017 1:48 PM The status of this report is Signed. Draft = Not yet reviewed or approved by Radiologist. Signed = Reviewed and approved by Radiologist. <AttendingPhy></AttendingPhy> <FamilyPhy>Valentina Rodriguez PA-C</FamilyPhy> <PrimaryPhy >Valentina Rodriguez PA-C</PrimaryPhy> <UnitNumber>[id number]</UnitNumber> <VisitNumber> [id number]</VisitNumber> <PatientName>JOVANNI SANABRIA</PatientName> < DateOfBirth>1985</DateOfBirth> <Location>[facility]</Location> <ServiceDate>07/20</ServiceDate> <MNE>ESINDI</MNE> <OrderingPhy>Love Mistry PA-C</ OrderingPhy> <OrderingPhyMNE>f rep ord dr childers</OrderingPhyMNE> <DictatingPhyMNE> f rep dict dr childers</DictatingPhyMNE> <CCListMNE>f rep ct mne</CCListMNE> < AdmittingPhyMNE>f pt admit dr childers</AdmittingPhyMNE> <AttendingPhyMNE>f pt attend dr childers</AttendingPhyMNE> <ConsultingPhyMNE>f pt consult dr childers</ConsultingPhyMNE> <FamilyPhyMNE>f pt fam dr childers</FamilyPhyMNE> <OtherPhyMNE>f pt other dr childers</OtherPhyMNE> < PrimaryPhyMNE>f pt prim care dr childers</PrimaryPhyMNE> <ReferringPhyMNE>f pt referring [facility] IMPRESSION: No evidence of deep venous thrombus within the left lower extremity. Electronically signed by: Deepak Zuñiga M.D. 08/01/2017 2:13 PM Dictated Date/Time: 08/01/2017 2:12 PM The status of this report is Signed. Draft = Not yet reviewed or approved by Radiologist. L knee xray IMPRESSION: Negative study. The above report was generated using voice recognition software. It may contain grammatical, syntax or spelling errors. Electronically signed by: Kristopher Allison M.D. 08/01/2017 1:49 PM Dictated Date/Time: 08/01/2017 1:48 PM The status of this report is Signed. Draft = Not yet reviewed or approved by Radiologist. Signed = Reviewed and approved by Radiologist. <AttendingPhy></AttendingPhy> <FamilyPhy>Michael ZAY-C</FamilyPhy> <PrimaryPhy >Michael PA-C</PrimaryPhy> <UnitNumber>[id number]</UnitNumber> <VisitNumber> [id number]</VisitNumber> <PatientName>MILLICENT RODRIGUEZSHUA ADRIANE</PatientName> < DateOfBirth>1985</DateOfBirth> <Location>[facility]</Location> <ServiceDate>07/20</ServiceDate> <MNE>ESINDI</MNE> <OrderingPhy>Love Mistry-C</ OrderingPhy> <OrderingPhyMNE>f rep ord dr childers</OrderingPhyMNE> <DictatingPhyMNE> f rep dict dr childers</DictatingPhyMNE> <CCListMNE>f rep ct mne</CCListMNE> < AdmittingPhyMNE>f pt admit dr childers</AdmittingPhyMNE> <AttendingPhyMNE>f pt attend dr childers</AttendingPhyMNE> <ConsultingPhyMNE>f pt consult dr childers</ConsultingPhyMNE> <FamilyPhyMNE>f pt fam dr childers</FamilyPhyMNE> <OtherPhyMNE>f pt other dr childers</OtherPhyMNE> < PrimaryPhyMNE>f pt prim care dr childers</PrimaryPhyMNE> <ReferringPhyMNE>f pt referring dr childers</ReferringPhyMNE> Medications Administered Medications (Trade) Dose Ordered Sig/Will Route Start Time Stop Time Status Last Admin Dose Admin Oxycodone/ Acetaminophen (Percocet 5-325mg Tab) 1 tab NOW STAT PO 08/01/17 13:24 08/01/17 13:27 DC 08/01/17 13:46 1 TAB Ibuprofen (Advil Tab) 800 mg NOW STAT PO 08/01/17 13:24 08/01/17 13:27 DC 08/01/17 13:46 800 MG ED Course The patient was seen and examined He was medicated with Percocet and ibuprofen Imaging was performed and reviewed Upon reevaluation, the patient was much more comfortable. We thoroughly reviewed his results. He voiced understanding, was comfortable being discharged home. He was given and knee immobilizer and crutches. Discharge instructions were thoroughly reviewed, and he was discharged in good condition Medical Decision differential diagnosis: Contusion, fracture, effusion, DVT, meniscus injury, ligament injury This patient is a 32-year-old male presents to the emergency department with continued left knee pain after traumatic injury to the knee 10 days ago. On exam, he did have ecchymosis to the medial aspect of the knee. He had difficulty with flexion. Imaging did not reveal any signs of fracture or large effusion. An ultrasound was performed and negative for DVT. This is likely a contusion. The patient was given a short course of Ultram. He was also given a knee immobilizer and crutches. If there is no improvement in the next 5-7 days, he will follow-up with his orthopedic doctor. He agrees to return to the emergency department with worsening symptoms. This chart was completed in part utilizing [employer] Speech Voice Recognition software. Attempts were made to minimize the grammatical errors, random word insertions, pronoun errors and incomplete sentences. Any formal questions or concerns about the content, text or information contained within the body of this dictation should be directly addressed to the provider for clarification. [place] Drug Monitoring Program Search Results: see additional documentation (numerous prescriptions for Harold) Medication Reconcilliation Current Medication List: was personally reviewed by me Blood Pressure Screening Patient's blood pressure: Normal blood pressure Impression Primary Impression: Knee contusion Departure Information Dispostion Home / Self-Care Condition GOOD Prescriptions Tramadol (Ultram) 50 Mg Tab 50 MG PO Q4H Y for Pain, #20 TAB Prov: Love Mistry PA-C 08/01/17 Referrals Valentina Rodriguez PA-C (PCP) Patient Instructions My [facility] Additional Instructions You were evaluated in the emergency department for knee pain. There were no fractures on x-rays. There is also no blood clot per ultrasound. Please keep the knee immobilizer in place and use crutches. Minimal weightbearing until the knee is feeling better. Please take Ultram 1 tab every 4 hours as needed for pain. This may be taken with ibuprofen 600 mg every 6 hours as needed. Continue Harold for severe pain only Please apply ice for 20 minute intervals and elevate the knee as much as possible over the next several days. If there is no improvement in 7 days, please follow-up with your orthopedic doctor Please do not hesitate to return to the emergency department with a new, worsening or concerning symptoms
--- NOTE | 2017-08-01 13:50 | DIAGNOSTIC IMAGING REPORT ---
L TIBIA/FIBULA 2 VIEWS ROUTINE CLINICAL HISTORY: Mid tibial pain COMPARISON: None. DISCUSSION: No acute fractures or dislocations are visualized. There is a small phlebolith within the soft tissues, just anterior to the tibia at the junction of the middle distal one third. IMPRESSION: 1. No bony abnormality is identified 2. Small phlebolith within the anterior soft tissues Electronically signed by: Guanakito Lerma M.D. 08/01/2017 1:49 PM Dictated Date/Time: 08/01/2017 1:48 PM
--- NOTE | 2017-08-01 13:50 | DIAGNOSTIC IMAGING REPORT ---
L KNEE 3 VIEWS CLINICAL HISTORY: L knee pain medial aspect pain COMPARISON: None. DISCUSSION: The bones and joint spaces appear intact. There is no evidence of fracture, dislocation or bony disease. There is no evidence for soft tissue swelling. IMPRESSION: Negative study. The above report was generated using voice recognition software. It may contain grammatical, syntax or spelling errors. Electronically signed by: Kristopher Allison M.D. 08/01/2017 1:49 PM Dictated Date/Time: 08/01/2017 1:48 PM
--- NOTE | 2017-08-01 14:14 | DIAGNOSTIC IMAGING REPORT ---
LEFT LOWER EXTREMITY VENOUS DOPPLER CLINICAL HISTORY: Left lower extremity edema and tenderness. COMPARISON STUDY: No previous studies for comparison. TECHNIQUE: Sonography of the deep venous system of the left lower extremity was performed. Compression and augmentation were evaluated. FINDINGS: The left common femoral, superficial femoral and popliteal veins were compressible. Augmentation was normal. Flow was shown within the deep calf vessels. A few benign left inguinal lymph nodes were noted. No sonographic abnormality was identified at site of maximal bruising posterior to the left knee. IMPRESSION: No evidence of deep venous thrombus within the left lower extremity. Electronically signed by: Deepak Zuñiga M.D. 08/01/2017 2:13 PM Dictated Date/Time: 08/01/2017 2:12 PM
[2017-08-01 15:12] VITALS: BP 122/70; PULSE 62; O2SAT 98
[2017-08-01] MEDS ORDERED: TRAM-10 PO (15:22)
== END 2017-08-01 15:33 | disposition home or self-care (01) ==
LOC: C.EDB 12:49 → C.EDD 15:33
DX: S80.02XA Contusion of left knee, initial encounter (principal); W22.8XXA Striking against or struck by other objects, initial encounter; Y99.0 Civilian activity done for income or pay; J45.909 Unspecified asthma, uncomplicated; F17.200 Nicotine dependence, unspecified, uncomplicated; F12.90 Cannabis use, unspecified, uncomplicated; Z82.49 Family history of ischemic heart disease and other diseases of the circulatory system; Z88.6 Allergy status to analgesic agent; Z88.9 Allergy status to unspecified drugs, medicaments and biological substances

== ENCOUNTER 2018-01-03 09:58 | Emergency (ER) | payer OTHER ==
[~2018-01-03] VITALS: Ht 175.3 cm; Wt 74.6 kg
[~2018-01-03 09:58] MED LIST changes: +TRAM-10 PO
[2018-01-03 10:09] VITALS: TEMP 36.8; Ht 175.3 cm; Wt 74.6 kg
[2018-01-03] MEDS ORDERED: TRAMADOL HCL 50 MG TAB PO STA (10:14)
[2018-01-03] MEDS ORDERED: IBUPROFEN 600 MG TAB PO STA (10:14)
[2018-01-03] MEDS ORDERED: CEPHALEXIN MONOHYDRATE 250 MG CAP PO ONE (10:15)
[2018-01-03] MEDS ORDERED: ACET-1693 PO (10:23)
--- NOTE | 2018-01-03 10:43 | DIAGNOSTIC IMAGING REPORT ---
RIGHT SECOND FINGER 3 VIEWS CLINICAL HISTORY: Second finger infection. FINDINGS: 3 views of the right second finger are obtained. No prior studies are available for comparison at the time of dictation. The skeletal structures are well mineralized. No fracture is seen. No bony erosion or periostitis is identified. The second metacarpophalangeal and interphalangeal joints are preserved. Soft tissue edema is present in the second finger, greatest around the proximal interphalangeal joint. No radiodense foreign body is seen. No subcutaneous gas is identified. IMPRESSION: 1. No acute osseous abnormality is seen in the right second finger. 2. Soft tissue edema is noted in the second finger, greatest around the proximal interphalangeal joint. Electronically signed by: Keo Cherry M.D. 01/03/2018 10:41 AM Dictated Date/Time: 01/03/2018 10:40 AM
[2018-01-03] MEDS ORDERED: CEPH500C PO (11:44)
[2018-01-03] MEDS ORDERED: TRAM-10 PO (11:44)
[2018-01-03 11:59] VITALS: BP 114/74; PULSE 72; O2SAT 98
--- NOTE | 2018-01-03 17:43 | EMERGENCY ROOM VISIT NOTE ---
History First contact with patient: 10:09 Chief Complaint: FINGER PAIN Stated Complaint: FINGER PAIN History of Present Illness The patient is a 32 year old male who presents to the Emergency Room with complaints of an infection, swelling and pain of the right index finger. The patient reports that he cut his finger approximately 3 weeks ago while sharpening a chainsaw. 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 The patient reports that he started to notice redness and swelling approximately 4 days ago. He did attempt to stick a needle in it and did get some drainage. He reports mild pain radiating into the base of the finger. He denies any pain extending to the hand or wrist region. He denies red streaks, fever or chills. He rates his discomfort a 7 out of 10. Tetanus immunization is up-to-date. The patient is right-hand dominant. Review of Systems HEENT: Denies dizziness, visual problems, hearing loss, tinnitus. Denies difficulty swallowing or oral lesions. PULMONARY: Denies cough, shortness of breath, sputum production or hemoptysis. CARDIOVASCULAR: Denies chest pain, palpitations, dyspnea on exertion, orthopnea or peripheral edema. GASTROINTESTINAL: Denies diarrhea, constipation, nausea, vomiting, or abdominal pain. GENITOURINARY: Denies dysuria, frequency, urgency or nocturia. NEUROLOGIC: Denies history of epilepsy, CVA, TIA or chronic headaches. MUSCULOSKELETAL: Denies history of joint tenderness/swelling. SKIN: Denies rashes or lesions. PSYCHIATRIC: Denies history of depression or mental illness. ENDOCRINE: Denies history of diabetes or thyroid disorders. Past Medical/Surgical History Medical Problems: (1) Altered mental status (2) Asthma, Unspecified (3) Back pain (4) Back pain (5) Closed head injury (6) Concussion (7) Corneal abrasion (8) Dehydration (9) Dehydration (10) Diarrhea (11) Epigastric abdominal pain (12) Foreign body in eye (13) Foreign body in eye (14) Hand contusion (15) Hand laceration (16) Headache (17) Headache (18) Low back pain (19) Nausea and vomiting (20) Nausea and vomiting (21) Pain of right great toe (22) Pain, dental (23) Pain, dental (24) Periapical abscess (25) Pilonidal cyst without abscess (26) Postoperative pain (27) Right elbow pain (28) Right elbow pain (29) Sinusitis (30) Sprain of left hand (31) Vasovagal episode (32) Vomiting (33) Vomiting Surgical Problems: (1) H/O elbow surgery Family History Cancer Heart disease Hypertension Social History Smoking Status: Current Every Day Smoker Alcohol Use: none Drug Use: marijuana Marital Status: Housing Status: lives with family Occupation Status: employed Current/Historical Medications Scheduled Acetaminophen Tab (Tylenol), 2,600 MG PO BID Cephalexin Monohydrate (Keflex), 500 MG PO QID Scheduled PRN Albuterol Hfa (Ventolin Hfa), 2 PUFFS INH Q6H PRN for SOB/Wheezing Tramadol (Ultram), 1 TAB PO Q4H PRN for Pain Physical Exam Vital Signs Date Time Temp Pulse Resp B/P (MAP) Pulse Ox O2 Delivery O2 Flow Rate FiO2 01/03/18 11:59 72 16 114/74 98 Room Air 01/03/18 10:09 36.8 73 18 127/83 100 Room Air Physical Exam CONSTITUTIONAL: Healthy and well nourished. Alert and oriented X 3 with positive affect. Patient appears in mild discomfort. HEENT: Normocephalic, atraumatic. Pupils equal, round and reactive. NECK: Full active range of motion without discomfort. MUSCULOSKELETAL: Examination of the right index finger shows evidence for a prior laceration to the dorsal radial PIP joint. There is surrounding erythema with no obvious fluctuance. There is no erythema that extends onto the proximal finger or hand region. Negative anatomic snuffbox tenderness. The patient has no discomfort with isolated flexion and extension of the MCP joint. No proximal lymphangitic streaking. Capillary refill is less than 2 seconds. INTEGUMENTARY: No rash or other significant dermatologic conditions noted. NEUROLOGIC: No focal neurologic deficits noted. Right index fingertip is sensory intact. Medical Decision & Procedures ER Provider Diagnostic Interpretation: My interpretation of right index finger x-rays does not show any acute fracture , dislocation, bony lysis or obvious radiopaque foreign body. Radiologist report is as follows: RIGHT SECOND FINGER 3 VIEWS CLINICAL HISTORY: Second finger infection. FINDINGS: 3 views of the right second finger are obtained. No prior studies are available for comparison at the time of dictation. The skeletal structures are well mineralized. No fracture is seen. No bony erosion or periostitis is identified. The second metacarpophalangeal and interphalangeal joints are preserved. Soft tissue edema is present in the second finger, greatest around the proximal interphalangeal joint. No radiodense foreign body is seen. No subcutaneous gas is identified. IMPRESSION: 1. No acute osseous abnormality is seen in the right second finger. 2. Soft tissue edema is noted in the second finger, greatest around the proximal interphalangeal joint. Medications Administered Medications (Trade) Dose Ordered Sig/Will Route Start Time Stop Time Status Last Admin Dose Admin Cephalexin Monohydrate (Keflex Cap) 500 mg NOW ONCE PO 01/03/18 10:15 01/03/18 10:16 DC 01/03/18 10:31 500 MG Tramadol HCl (Ultram Tab) 50 mg ONE STAT PO 01/03/18 10:14 01/03/18 10:16 DC 01/03/18 10:31 50 MG Ibuprofen (Motrin Tab) 600 mg NOW STAT PO 01/03/18 10:14 01/03/18 10:16 DC 01/03/18 10:31 600 MG ED Course Patient history and physical exam were performed. Nurse's notes were reviewed. Vital signs were reviewed and were normal. The patient was administered ibuprofen and Ultram for pain. He was also administered Keflex 500 mg orally. X-rays of the right index finger were normal. The patient will be provided a prescription for Keflex. He was encouraged alternate ibuprofen and Tylenol for baseline pain relief. He was also provided a prescription for Ultram as needed for breakthrough pain. He was provided contact information for Dr. Torres, [facility] hand surgeon for further close follow-up. He was instructed to return to the emergency department for any progressively worsening swelling, redness, pain, red streaks or fever. The patient was happy with plan of care, voiced understanding of all discharge instructions, and rated his pain a 3 out of 10 at the time of discharge. Medical Decision [place] Drug Monitoring Program Search Results: patient reviewed within database Medication Reconcilliation Current Medication List: was personally reviewed by me Blood Pressure Screening Patient's blood pressure: Normal blood pressure Impression Primary Impression: Cellulitis of right index finger Departure Information Dispostion Home / Self-Care Condition GOOD Prescriptions Tramadol (Ultram) 50 Mg Tab 1 TAB PO Q4H Y for Pain, #15 TAB For Initial Treatment Prov: Blu Ramos PA 01/03/18 Cephalexin Monohydrate (Keflex) 500 Mg Cap 500 MG PO QID for 7 Days, #28 CAP Prov: Blu Ramos PA 01/03/18 Referrals Jose Torres MD Forms HOME CARE DOCUMENTATION FORM, IMPORTANT VISIT INFORMATION Patient Instructions My [facility] Additional Instructions Complete all Keflex antibiotics as prescribed. Minimize use of finger until infection improves. Ibuprofen 800 mg and/or Tylenol 1000 mg every 8 hours. You may also alternate these medications for more effective pain relief: Ibuprofen --4 HRS--> Tylenol --4 HRS--> ibuprofen --4 HRS--> Tylenol .... Ultram if needed for worse pain. Follow-up with Dr. Burris (hand surgeon) for further reevaluation and management. Return to the emergency department for any progressively worsening infection, swelling, red streaks or fever.
== END 2018-01-03 12:01 | disposition home or self-care (01) ==
LOC: C.EDB 09:58
DX: L03.011 Cellulitis of right finger (principal); W45.8XXA Other foreign body or object entering through skin, initial encounter; F17.200 Nicotine dependence, unspecified, uncomplicated

== ENCOUNTER 2018-01-05 19:30 | Emergency (ER) | payer OTHER ==
[~2018-01-05] VITALS: Ht 193 cm; Wt 72.3 kg
[~2018-01-05 19:30] MED LIST changes: +ACET-1693 PO; +CEPH500C PO; -HYDR-5688 PO
[2018-01-05 19:32] VITALS: TEMP 36.3; Ht 193 cm; Wt 72.3 kg
[2018-01-05] MEDS ORDERED: SODIUM CHLORIDE 0.9% 1000ML 1,000 ML IV STA (20:08)
[2018-01-05 20:33] LABS: BASO % 0.4 %; BASO ABS # 0.05 K/uL (0-0.2); EOS ABS # 0.37 K/uL (0-0.5); HEMATOCRIT 38.7 % (42-52); HEMOGLOBIN 13.3 g/dL (14.0-18.0); IG# 0.03 K/uL (0.00-0.02); LYMPH % 23.5 %; LYMPH ABS # 2.91 K/uL (1.2-3.4); MEAN CELL VOLUME 92.4 fL (80-100); MEAN CORPUSCULAR HEMOGLOBIN 31.7 pg (25-34); MEAN CORPUSCULAR HGB CONC 34.4 g/dl (32-36); MEAN PLATELET VOLUME 9.9 fL (7.4-10.4); MONO % 7.7 %; MONO ABS # 0.95 K/uL (0.11-0.59); NEUT % 65.2 %; NEUT ABS # 8.07 K/uL (1.4-6.5); PLATELET COUNT 260 K/uL (130-400); RED CELL DISTRIBUTION WIDTH SD 43.8 fL (36.4-46.3); WHITE BLOOD COUNT 12.38 K/uL (4.8-10.8)
[2018-01-05 21:01] LABS: ALBUMIN 4.3 gm/dl (3.4-5.0); CALCIUM 8.7 mg/dl (8.5-10.1); CREATININE 0.98 mg/dl (0.60-1.40); POTASSIUM 3.4 mmol/L (3.5-5.1); TOTAL PROTEIN 7.5 gm/dl (6.4-8.2)
[2018-01-05] MEDS ORDERED: TRAM-10 PO (21:50)
[2018-01-05] MEDS ORDERED: TYLOTC500 PO (21:50)
[2018-01-05] MEDS ORDERED: CEPH500C2 PO (21:50)
[2018-01-05 22:00] VITALS: BP 105/79; PULSE 60; O2SAT 100
--- NOTE | 2018-01-06 00:48 | EMERGENCY ROOM VISIT NOTE ---
History Report prepared by Marahibjennifer: Andie Florian Under the Supervision of: Dr. Brian Swan D.O. First contact with patient: 20:00 Chief Complaint: FINGER PAIN Stated Complaint: INFECTION IN RT POINTER FINGER GETTING WORSE History of Present Illness The patient is a 32 year old male who presents to the Emergency Room with complaints of constant worsening R index finger pain beginning a few weeks ago. He notes he was seen in the ED 3 days ago, and given Keflex. He notes that the erythema has improved with the swelling has slightly improved. He notes that the pain has worsened. The patient reports he cut his finger on a chain saw about 3.5 weeks ago. He states the pain now extends from his finger to his wrist , and he is feeling run down, has a severe headache, and vomited once today. The patient denies any fevers. He denies any new swelling or redness of the finger. The patient states he noticed a white area on the finger, but denies drainage. He has attempted to see orthopedics as an outpatient [facility] but they do not take his insurance. He will follow-up with Dr. Beal's group once he obtains a referral. Source of History: patient Onset: few weeks ago Position: finger(s) (R index) Associated Symptoms: + headache (severe), + vomiting (once), No fevers Note: Associated symptom: Feeling "run down". Denies: new swelling or redness of R index finger, drainage of R index finger Review of Systems See HPI for pertinent positives & negatives. A total of 10 systems reviewed and were otherwise negative. Past Medical & Surgical Medical Problems: (1) Altered mental status (2) Asthma, Unspecified (3) Back pain (4) Back pain (5) Closed head injury (6) Concussion (7) Corneal abrasion (8) Dehydration (9) Dehydration (10) Diarrhea (11) Epigastric abdominal pain (12) Foreign body in eye (13) Foreign body in eye (14) Hand contusion (15) Hand laceration (16) Headache (17) Headache (18) Low back pain (19) Nausea and vomiting (20) Nausea and vomiting (21) Pain of right great toe (22) Pain, dental (23) Pain, dental (24) Periapical abscess (25) Pilonidal cyst without abscess (26) Postoperative pain (27) Right elbow pain (28) Right elbow pain (29) Sinusitis (30) Sprain of left hand (31) Vasovagal episode (32) Vomiting (33) Vomiting Surgical Problems: (1) H/O elbow surgery Family History Cancer Heart disease Hypertension Social History Smoking Status: Current Every Day Smoker Alcohol Use: none Drug Use: marijuana Marital Status: Housing Status: lives with family Occupation Status: employed Current/Historical Medications Scheduled Cephalexin Monohydrate (Keflex), 500 MG PO QID Scheduled PRN Acetaminophen (Tylenol), 2,000 MG PO DIRECTED PRN for Pain Albuterol Hfa (Ventolin Hfa), 2 PUFFS INH Q6H PRN for SOB/Wheezing Tramadol (Ultram), 50 MG PO Q4H PRN for Pain Allergies Coded Allergies: Hydrocortisone (Verified Allergy, Intermediate, HIVES, 01/05/18) Physical Exam Vital Signs Date Time Temp Pulse Resp B/P (MAP) Pulse Ox O2 Delivery O2 Flow Rate FiO2 01/05/18 22:00 60 16 105/79 100 Room Air 01/05/18 19:32 36.3 69 18 112/71 98 Room Air Physical Exam GENERAL: Sitting up in bed, alert, well appearing, well nourished, no distress, non-toxic EYE EXAM: normal conjunctiva. OROPHARYNX: no exudate, no erythema, lips, buccal mucosa, and tongue normal and mucous membranes are moist NECK: supple, no nuchal rigidity, no adenopathy, non-tender LUNGS: Clear to auscultation. Normal chest wall mechanics HEART: no murmurs, S1 normal and S2 normal ABDOMEN: abdomen soft, non-tender, normo-active bowel sounds, no masses, no rebound or guarding. BACK: Back is symmetrical on inspection and there is no deformity, no midline tenderness, no CVA tenderness. SKIN: no rashes and no bruising UPPER EXTREMITIES: upper extremities are grossly normal. R index finger on lateral posterior aspect has 1 cm laceration, faint surrounding erythema, mild fluctuance underneath, minimal pain with extension, able to flex PIP 40 degrees with discomfort. LOWER EXTREMITIES: No pitting edema. NEURO EXAM: Normal sensorium, cranial nerves II-XII grossly intact, normal speech, no gross weakness of arms, no gross weakness of legs. Medical Decision & Procedures Laboratory Results 01/05/18 20:20 Red Blood Count 4.19, Mean Corpuscular Volume 92.4, Mean Corpuscular Hemoglobin 31.7, Mean Corpuscular Hemoglobin Concent 34.4, Mean Platelet Volume 9.9, Neutrophils (%) (Auto) 65.2, Lymphocytes (%) (Auto) 23.5, Monocytes (%) (Auto) 7.7, Eosinophils (%) (Auto) 3.0, Basophils (%) (Auto) 0.4, Neutrophils # (Auto) 8.07, Lymphocytes # (Auto) 2.91, Monocytes # (Auto) 0.95, Eosinophils # (Auto) 0.37, Basophils # (Auto) 0.05 01/05/18 20:20 Test 01/05/18 20:20 White Blood Count 12.38 K/uL (4.8-10.8) Red Blood Count 4.19 M/uL (4.7-6.1) Hemoglobin 13.3 g/dL (14.0-18.0) Hematocrit 38.7 % (42-52) Mean Corpuscular Volume 92.4 fL (80-100) Mean Corpuscular Hemoglobin 31.7 pg (25-34) Mean Corpuscular Hemoglobin Concent 34.4 g/dl (32-36) Platelet Count 260 K/uL (130-400) Mean Platelet Volume 9.9 fL (7.4-10.4) Neutrophils (%) (Auto) 65.2 % Lymphocytes (%) (Auto) 23.5 % Monocytes (%) (Auto) 7.7 % Eosinophils (%) (Auto) 3.0 % Basophils (%) (Auto) 0.4 % Neutrophils # (Auto) 8.07 K/uL (1.4-6.5) Lymphocytes # (Auto) 2.91 K/uL (1.2-3.4) Monocytes # (Auto) 0.95 K/uL (0.11-0.59) Eosinophils # (Auto) 0.37 K/uL (0-0.5) Basophils # (Auto) 0.05 K/uL (0-0.2) RDW Standard Deviation 43.8 fL (36.4-46.3) RDW Coefficient of Variation 13.0 % (11.5-14.5) Immature Granulocyte % (Auto) 0.2 % Immature Granulocyte # (Auto) 0.03 K/uL (0.00-0.02) Anion Gap 7.0 mmol/L (3-11) Est Creatinine Clear Calc Drug Dose 109.6 ml/min Estimated GFR () 116.9 Estimated GFR (Non- 100.9 BUN/Creatinine Ratio 14.3 (10-20) Calcium Level 8.7 mg/dl (8.5-10.1) Total Bilirubin 0.5 mg/dl (0.2-1) Direct Bilirubin 0.1 mg/dl (0-0.2) Aspartate Amino Transf (AST/SGOT) 16 U/L (15-37) Alanine Aminotransferase (ALT/SGPT) 20 U/L (12-78) Alkaline Phosphatase 72 U/L (45-117) Total Protein 7.5 gm/dl (6.4-8.2) Albumin 4.3 gm/dl (3.4-5.0) Lipase 88 U/L (73-393) Laboratory results per my review. Medications Administered Medications (Trade) Dose Ordered Sig/Will Route Start Time Stop Time Status Last Admin Dose Admin Sodium Chloride 1,000 ml @ 999 mls/hr Q1H1M STAT IV 01/05/18 20:08 01/05/18 21:08 DC 01/05/18 20:25 999 MLS/HR ED Course ED COURSE: Vital signs were reviewed and showed no abnormalities. The patients medical record was reviewed The above diagnostic studies were performed and reviewed. ED treatments and interventions as stated above. 2000: The patient was evaluated in room A3. A complete history and physical examination was performed. 2007: Ordered Sodium Chloride 1000 ml @ 999 mls/hr IV 2107: Reviewed X ray of R hand from previous ED visit, which revealed soft tissue swelling and no foreign bodies in R index finger. 2121: I performed a bedside ultrasound of the patient's R index finger. 2200: Upon reevaluation, the patient is resting. I discussed my findings with the patient and he understands and agrees with the treatment plan. Based on the patients age, coexisting illnesses, exam and lab findings the decision to treat as an outpatient was made. The patient remained stable while under my care. The patient appeared well at the time of discharge. Medical Decision Differential diagnosis includes etiologies such as cellulitis, abscess, MRSA infection, DVT, necrotizing fasciitis, dermatitis, drug eruption, as well as others were entertained. Patient is a 32-year-old male who presents the ER for recheck of his wound of his right second digit. He does have swelling at the PIP with a healed laceration. There is no drainage. There is some mild surrounding erythema. No signs of tenosynovitis. CBC shows a mild leukocytosis. BMP along with LFTs were unremarkable. Previous x-ray was reviewed and unremarkable as well. Bedside ultrasound was performed and showed small fluid collection underneath laceration but it does appear to be improving if not worsening. Patient was encouraged to continue his antibiotics and discharged follow-up with Dr. Beal' s group from orthopedics. No signs of tenosynovitis at this time as we are able to extend with faint tenderness and right second digit does not appear to be significantly swollen more than any other digit. No streaking redness either. Discussed with Pt concerning signs and symptoms to watch out for. Pt was instructed to follow up with their PCP and discussed with the patient their option to return to the ED at anytime for persistent or worsening symptoms. The appropriate anticipatory guidance and out-patient management, including indications for return to the emergency department, were explained at length to the patient and understood. Medication Reconcilliation Current Medication List: was personally reviewed by me Blood Pressure Screening Patient's blood pressure: Normal blood pressure Blood pressure disposition: Did not require urgent referral Impression Primary Impression: Finger infection Scribe Attestation The scribe's documentation has been prepared under my direction and personally reviewed by me in its entirety. I confirm that the note above accurately reflects all work, treatment, procedures, and medical decision making performed by me. Departure Information Dispostion Home / Self-Care Referrals Valentina Rodriguez PA-C (PCP) Forms HOME CARE DOCUMENTATION FORM, IMPORTANT VISIT INFORMATION, WORK / SCHOOL INSTRUCTIONS Patient Instructions My [facility] Additional Instructions Please follow up with your primary care doctor with in the next 24 hours. Any worsening of your symptoms, please return to the ED immediately. This includes any fevers greater than 100.4, worsening pain, chest pain, shortness breath, persistent nausea, vomiting, unable to eat or drink, or any other concerning signs or symptoms from your standpoint. Please continue your antibiotics as prescribed. Please make sure they follow- up with orthopedics as soon as possible. Any redness streaking down your hand, increased swelling, unable to extend your digit or any other concerning signs or symptoms please return to the ER as stated above.
== END 2018-01-05 22:00 | disposition home or self-care (01) ==
LOC: C.EDB 19:31 → C.EDA 22:00
DX: L08.9 Local infection of the skin and subcutaneous tissue, unspecified (principal); S61.210D Laceration without foreign body of right index finger without damage to nail, subsequent encounter; J45.909 Unspecified asthma, uncomplicated; Z80.9 Family history of malignant neoplasm, unspecified; Z82.49 Family history of ischemic heart disease and other diseases of the circulatory system; F17.210 Nicotine dependence, cigarettes, uncomplicated; F12.90 Cannabis use, unspecified, uncomplicated; Z88.8 Allergy status to other drugs, medicaments and biological substances; W29.3XXD Contact with powered garden and outdoor hand tools and machinery, subsequent encounter